=== PATIENT | male | born 1970 | race Caucasian/White ===

== ENCOUNTER 2017-01-24 10:53 | Inpatient (IN) | payer MEDICARE ==
[2017-01-24 11:40] LABS: Bilirubin Negative (Negative); Blood, Urine Trace (Negative); Glucose, Urine (Dipstick) >=1000 mg/dL (Negative); Ketone, Urine > or equal to 80 mg/dL (Negative); Nitrite Negative (Negative); Protein, Urine (Dipstick) 30 mg/dL (Neg-Trace); Urobilinogen 0.2 mg/dL (0.2-1.0)
[2017-01-24 11:43] LABS: Bacteria/HPF None Seen HPF (None Seen); Hyaline Casts/LPF 0-3 HYALINE CAST LPF (0-3 Hyaline); RBC/HPF 0-3 HPF (0-3); Squamous Epithelial None Seen HPF (0-3); WBC/HPF 0-3 HPF (0-3)
[2017-01-24 12:12] LABS: Hematocrit 54.2 % (42.0-52.0); Mean Platelet Volume 7.6 fL (7.4-10.4); Red Blood Cell (RBC) Count 5.32 mill/uL (4.70-6.10); White Blood Cell (WBC) Count 26.4 thou/uL (4.8-10.8)
[2017-01-24 12:22] LABS: Lactic Acid - Sepsis 3.1 mmol/L (0.5-2.2)
[2017-01-24 12:23] LABS: ALT (SGPT) 19 U/L (8-55); AST (SGOT) 16 U/L (5-34); Alkaline Phosphatase 174 U/L (40-150); BUN (Urea Nitrogen) 18 mg/dL (8.9-20.6); Band 5 % (5-11); Bilirubin, Total 0.2 mg/dL (0.2-1.2); Calc. Creatinine Clearance 0 mL/min (70-130); Chloride 104 mmol/L (98-107); Estimated GFR-MDRD 44; Globulin 3.7 g/dL (2.4-3.5); Lipase Less than 4 U/L (8-78); Metamyelocyte 2 % (0-0); Myelocyte 4 % (0-0); Neutrophil 78 % (42-75); Protein, Total 8.5 g/dL (6.0-8.3)
[2017-01-24 12:26] LABS: Carbon Dioxide Less than 8 mmol/L (22-29)
[2017-01-24 12:31] LABS: Troponin I Less than 0.010 ng/mL (< 0.028)
[2017-01-24] MEDS ORDERED: Insulin Regular 300 UNITS/3 ML VIAL ONE (12:53)
[2017-01-24] MEDS ORDERED: Insulin Regular 100 units/100 ml in NS IVPB SCH (13:00)
--- NOTE | 2017-01-24 13:13 | RAD ---
PORTABLE AP CHEST: Date: 01-24-17 History: abdominal pain, shortness of breath. Comparison: 03-12-09 FINDINGS: Cardiac silhouette and pulmonary vasculature are within normal limits. The lungs are clear on today' s examination. There is no other interval change. IMPRESSION: No acute cardiopulmonary process. POS: [facility]
[2017-01-24 15:11] VITALS: BMI 15.0
[2017-01-24] MEDS ORDERED: Acetaminophen 325 MG TAB PO PRN (15:21)
[2017-01-24] MEDS ORDERED: Ondansetron ODT 4 MG TAB SL PRN (15:21)
[2017-01-24] MEDS ORDERED: Ondansetron HCl/PF 4 MG/2 ML Vial IVP PRN (15:21)
[2017-01-24] MEDS ORDERED: Sodium Chloride 0.9% 1,000 ML IV PRN ×8 (15:23→15:24)
[2017-01-24] MEDS ORDERED: Dextrose 5 %-0.45 % NaCl 1,000 ML IV PRN ×2 (15:23→15:24)
[2017-01-24] MEDS ORDERED: NS 0.9% w/ 20 MEQ KCL 1,000 ML/1,000 ML BAG IV PRN ×2 (15:23)
[2017-01-24] MEDS ORDERED: Dextrose 5% in Water 1,000 ML IV PRN (15:23)
[2017-01-24] MEDS ORDERED: D5 1/2 NS w/20 mEq KCL 1,000 ML IV PRN (15:24)
[2017-01-24] MEDS ORDERED: CCU Electrolyte Replacement 1 EACH IVPB ONE (15:24)
[2017-01-24] MEDS ORDERED: NS 0.9% w/ 20 MEQ KCL 1,000 ML IV PRN ×2 (15:24)
[2017-01-24] MEDS ORDERED: Dextrose 50% Abboject 50 ML SYRINGE SLOW IVP PRN (15:25)
[2017-01-24] MEDS ORDERED: ADD ELECTROLYTE REPLACEMENT SET TO PROFILE FS SCH (15:30)
[2017-01-24] MEDS ORDERED: Insulin Regular 300 UNITS/3 ML VIAL IVP SCH (15:30)
[2017-01-24] MEDS ORDERED: Potassium Phosphate 15 MMOL in Sodium Chloride 0.9% 250 ML 250 ML IV PRN (15:39)
[2017-01-24] MEDS ORDERED: Magnesium 2 GM/NS 0.9% 100 ML 2 GM in Premix Bag 1 BAG IVPB PRN (15:39)
[2017-01-24] MEDS ORDERED: Magnesium Oxide 400 MG TAB PO PRN ×2 (15:39)
[2017-01-24] MEDS ORDERED: Potassium Chloride 40 MEQ in Premix Bag 1 BAG IVPB PRN (15:39)
[2017-01-24] MEDS ORDERED: CCU ELECTROLYTE REPLACEMENT PROTOCOL FS PRN (15:39)
[2017-01-24] MEDS ORDERED: Potassium Phosphate 12 MMOL in Sodium Chloride 0.9% 250 ML 250 ML IV PRN (15:39)
[2017-01-24] MEDS ORDERED: Potassium Chloride 20 MEQ TAB PO PRN (15:39)
[2017-01-24] MEDS ORDERED: Potassium Chloride 40 MEQ in Sodium Chloride 0.9% 250 ML 250 ML IVPB PRN (15:39)
[2017-01-24] MEDS ORDERED: Potassium Phosphate 9 MMOL in Sodium Chloride 0.9% 100 ML IVPB PRN (15:39)
[2017-01-24 16:07] LABS: BUN (Urea Nitrogen) 14 mg/dL (8.9-20.6); Calc. Creatinine Clearance 41 mL/min (70-130); Calcium 8.5 mg/dL (7.8-10.44); Chloride 114 mmol/L (98-107); Estimated GFR-MDRD 61
[2017-01-24 16:08] LABS: Carbon Dioxide Less than 8 mmol/L (22-29)
--- NOTE | 2017-01-24 16:30 | PDOC.EVN ---
Event Note - Event Note Event Note: Attending H&P I personally evaluated the patient and discussed the management with Dr. Pierre. The H&P was reviewed and is repeated by me. I agree with the History, Examination, Assessment and Plan documented above with any addition or exceptions noted below. Mr Martinez has DKA and is responding ewll to IV fluids and insulin. I recommended a CVC for fluid, lab and medication access, and after discussing the R/B/I/A of CVC procedure, Mr Martinez would not consent. His main concern was the possibility of complication. He said he is willing to reconsider if he worsens.
[2017-01-24 17:28] LABS: Amphetamine Not Detected (NotDetected); Methadone Not Detected (NotDetected); Methamphetamine Not Detected (NotDetected)
[2017-01-24] MEDS: D5 1/2 NS w/20 mEq KCL 1,000 ML IV PRN ×2 (17:46→22:05)
[2017-01-24 17:47] LABS: Hemoglobin A1c 11.7 % (4.0-6.0)
[2017-01-24 20:19] LABS: Anion Gap 15 mmol/L (10-20); BUN (Urea Nitrogen) 12 mg/dL (8.9-20.6); Calc. Creatinine Clearance 53 mL/min (70-130); Carbon Dioxide 12 mmol/L (22-29); Chloride 116 mmol/L (98-107); Estimated GFR-MDRD 83
--- NOTE | 2017-01-24 20:50 | HP-2 ---
DATE OF ADMISSION: 01/24/2017 at 1400 hours CODE STATUS: FULL. PRIMARY CARE PHYSICIAN: Brian Catherine M.D. ATTENDING: Juliocesar Capellan M.D. RESIDENT: Duran Pierre D.O. HISTORIAN: The patient. SPECIALISTS: None. CHIEF COMPLAINT: Diabetic ketoacidosis. HISTORY OF PRESENT ILLNESS: A 46-year-old male with a history of type 1 diabetes who presents to the emergency room stating that he is in DKA. He says that this has happened in the past and he knows what it feels like and knew that he needed to come and be admitted. He says he never checks the blood sugar , he just takes his meds as is ordered. He woke up this morning with shortness of breath with changes in his vision. He notes some polyuria for the past few days. Patient's last A1c in clinic was 7.9. PAST MEDICAL HISTORY: Type 1 diabetes, hypothyroid, hyperlipidemia, cerebral palsy, and hypertension. ALLERGIES: No known drug allergies. MEDICATIONS: NovoLog 8 units a.c., Lantus 10 units at bedtime, simvastatin 40 mg every day, ASA 81 mg. SOCIAL HISTORY: Tobacco none. Alcohol none. Drug use, none. REVIEW OF SYSTEMS: General: The patient denies fever, chills, or changes in weight or appetite. HEENT: Admits to blurred vision. Denies any nasal congestion or rhinorrhea. Respiratory: Admits to shortness of breath. Cardiovascular: Denies any chest pain or palpitations. GI: Denies any nausea or vomiting. Genitourinary: Admits to polyuria. Skin: Denies rashes or lesions. Musculoskeletal: Denies any pain or tenderness. Neurological: Denies any weakness or numbness. Psychological: Denies any anxiety or depression. PHYSICAL EXAMINATION: VITAL SIGNS: Blood pressure 136/72, pulse 130, respiratory rate 20, temperature 97.5, O2 sat 99% on room air, and his current weight is 45.4 kilograms. GENERAL: The patient is alert and oriented x3, in no apparent distress. HEENT: PERRLA. EOMI. NECK: Supple. No lymphadenopathy. CARDIOVASCULAR: The patient is tachycardic. No murmur. RESPIRATORY: Normal effort, no retractions, clear to auscultation bilaterally. The patient is tachypneic. SKIN: Warm and dry without cyanosis. ABDOMEN: Soft and nontender. Bowel sounds in all 4 quadrants without mass or distention. EXTREMITIES: There is no edema. MUSCULOSKELETAL: Muscle tone is within normal limits. NEUROLOGIC: There are no focal neurological deficits and cranial nerves II-XII are grossly intact. LABORATORY DATA: CBC: Hemoglobin 16.2, hematocrit 54.2, platelets 481, MCV 102 , bands 78%. CMP: Sodium 138, potassium 6.5, chloride 104, bicarbonate 8, BUN 18, creatinine 0.7, calcium is 10, total serum protein is 8.5, albumin 4.8, total bilirubin 0.2, AST 16, ALT 19, alkaline phosphatase 174, GFR is 44, lactate 2.1, ____, lipase less than 4. Troponin is negative. CK-MB 1.3. UA specific gravity 1.03, blood trace, protein 30, leukocyte esterase negative, nitrites negative, ketones greater than 80, glucose greater than 1000, RBCs, 0- 3 WBCs, 0-3, bacteria none. ASSESSMENT AND PLAN: 1. Diabetic ketoacidosis. Admit to IMCU with diabetic ketoacidosis protocol q.4 hour BMPs. Add a central line. Also, check UDS and UA. 2. Type 1 diabetes. DKA protocol. Titrate his medications. 3. Cerebral palsy. Outpatient followup p.r.n. 4. Hyperkalemia. Monitor BMP. This will likely come down with IVF and insulin. 5. Hypertension. Monitor BMP. MTDD
[2017-01-24] MEDS: Enoxaparin Sodium 40 MG/0.4 ML SYRINGE SC SCH (20:52)
[2017-01-24] MEDS ORDERED: FLU VACC QS2017-18 36 mo. & older 0.5 ML SYRINGE IM ONE (21:00)
[2017-01-24 23:58] LABS: Anion Gap 11 mmol/L (10-20); BUN (Urea Nitrogen) 11 mg/dL (8.9-20.6); Calc. Creatinine Clearance 58 mL/min (70-130); Carbon Dioxide 16 mmol/L (22-29); Chloride 115 mmol/L (98-107); Estimated GFR-MDRD Greater than 90
[2017-01-25] MEDS ORDERED: Insulin Detemir 100 UNITS/ML 10 UNITS in Pre-Filled Syringe 1 EACH SC SCH (00:30)
[2017-01-25] MEDS: D5 1/2 NS w/20 mEq KCL 1,000 ML IV PRN ×3 (02:08→10:29)
[2017-01-25 06:32] LABS: Anion Gap 8 mmol/L (10-20); BUN (Urea Nitrogen) 9 mg/dL (8.9-20.6); Calc. Creatinine Clearance 72 mL/min (70-130); Calcium 7.9 mg/dL (7.8-10.44); Carbon Dioxide 17 mmol/L (22-29); Chloride 115 mmol/L (98-107); Estimated GFR-MDRD Greater than 90
[2017-01-25] MEDS ORDERED: Insulin Detemir 100 UNITS/ML 15 UNITS in Pre-Filled Syringe 1 EACH SC SCH ×2 (09:00→21:00)
[2017-01-25] MEDS ORDERED: Enoxaparin Sodium 30 MG/0.3 ML SYRINGE SC SCH (09:00)
--- NOTE | 2017-01-25 09:42 | PDOC.FM ---
- Subjective Subjective: Pt doing well this morning with no complaints. Tolerated breakfast well. No adverse events overnight. - Objective MAR Reviewed: Yes Vital Signs & Weight: Vital Signs (12 hours) Temp Pulse Resp BP Pulse Ox 01/25/17 07:46 98.6 F 76 17 96 01/25/17 07:15 98.6 F 76 17 94/59 L 96 01/25/17 04:00 98.0 F 76 16 99/54 L 100 01/25/17 00:00 98.1 F 86 18 99/52 L 100 Weight Weight 39.735 kg I&O: 01/24/17 01/25/17 01/26/17 06:59 06:59 06:59 Intake Total 4178.7 480 Output Total 1405 Balance 2773.7 480 Result Diagrams: 01/24/17 11:54 01/25/17 05:50 <Bettye Naranjo - Last Filed: 01/25/17 09:39> - Objective Vital Signs & Weight: Weight Admit Weight 39.735 kg Weight 39.735 kg Result Diagrams: 01/26/17 03:21 01/27/17 11:39 <Ramon Esteves - Last Filed: 02/04/17 16:27> Phys Exam - Physical Examination Constitutional: NAD Respiratory: clear to auscultation bilateral Cardiovascular: RRR Gastrointestinal: soft, non-tender Musculoskeletal: no edema <Bettye Naranjo - Last Filed: 01/25/17 09:39> Dx/Plan (1) DKA (diabetic ketoacidoses) Code(s): E13.10 - OTH DIABETES MELLITUS WITH KETOACIDOSIS WITHOUT COMA Status : Resolved Qualifiers: Diabetes mellitus type: type 1 Plan: likely secondary to medication non-compliance. Resolved. Insulin drip discontinued this morning. Long-acting insulin regimen started this morning. (2) Type 1 diabetes Status: Chronic Plan: Will continue to monitor ac/hs accuchecks to determine what pt's insulin requirements are and adjust currently. Continue Levemir 15 units BID and mild SSI. (3) Non compliance w medication regimen Code(s): Z91.14 - PATIENT'S OTHER NONCOMPLIANCE WITH MEDICATION REGIMEN Status : Resolved Plan: Pt educated on adherence to medication regimen. (4) JOSE MARIA (acute kidney injury) Code(s): N17.9 - ACUTE KIDNEY FAILURE, UNSPECIFIED Status: Resolved Plan: resolved. Continue to monitor. (5) Hyperkalemia Code(s): E87.5 - HYPERKALEMIA Status: Resolved (6) Cerebral palsy Code(s): G80.9 - CEREBRAL PALSY, UNSPECIFIED Status: Chronic <Bettye Naranjo - Last Filed: 01/25/17 09:39> Attending Addendum - Attending Addendum I personally evaluated the patient and discussed the management with Dr. Naranjo on 01/25/17 I agree with the History, Examination, Assessment and Plan documented above with any addition or exceptions noted below. w/o c/o's this a.m. DKA resolved with AG closed. Advancing diet and converting to care home SQ regimen in prep for discharge. Medication and dietary compliance stressed including more frequent Accuchecks when not feeling well or sugar out of control with communication with PCP or elevator dispatcher if difficulty reacquiring ideal glycemic ranges. <Ramon Esteves - Last Filed: 02/04/17 16:27>
[2017-01-25] MEDS ORDERED: HumaLOG 300 UNITS/3 ML VIAL SC PRN (10:35)
[2017-01-25 10:43] LABS: Hematocrit 37.5 % (42.0-52.0); Mean Platelet Volume 7.2 fL (7.4-10.4); Red Blood Cell (RBC) Count 3.81 mill/uL (4.70-6.10); White Blood Cell (WBC) Count 15.8 thou/uL (4.8-10.8)
[2017-01-25 10:56] LABS: Band 9 % (5-11); Burr Cells SLIGHT = 2-5 cells (100X) (0-1/hpf); Neutrophil 69 % (42-75)
[2017-01-25] MEDS: HumaLOG 300 UNITS/3 ML VIAL SC SCH ×2 (11:52→17:31)
[2017-01-25] MEDS: Enoxaparin Sodium 40 MG/0.4 ML SYRINGE SC SCH (21:55)
[2017-01-25] MEDS: Insulin Detemir 100 UNITS/ML 10 UNITS in Pre-Filled Syringe SC SCH (21:55)
[2017-01-26 04:26] LABS: Anion Gap 12 mmol/L (10-20); BUN (Urea Nitrogen) 7 mg/dL (8.9-20.6); Calc. Creatinine Clearance 88 mL/min (70-130); Calcium 8.4 mg/dL (7.8-10.44); Carbon Dioxide 22 mmol/L (22-29); Chloride 108 mmol/L (98-107); Estimated GFR-MDRD Greater than 90
[2017-01-26 04:37] LABS: #Eosinphils 0.2 thou/uL (0.0-0.7); #Monocytes 0.9 thou/uL (0.11-0.59); #Neutrophils 5.2 thou/uL (1.40-6.50); %Basophils 0.4 % (0.0-1.0); %Eosinophils 2.2 % (0.0-10.0); %Lymphocytes 32.3 % (21.0-51.0); %Monocytes 9.1 % (0.0-10.0); Hematocrit 37.6 % (42.0-52.0); Mean Platelet Volume 7.2 fL (7.4-10.4); Red Blood Cell (RBC) Count 3.97 mill/uL (4.70-6.10); White Blood Cell (WBC) Count 9.4 thou/uL (4.8-10.8)
[2017-01-26] MEDS ORDERED: Potassium Chloride 20 MEQ TAB PO SCH (06:20)
--- NOTE | 2017-01-26 08:31 | PDOC.FM ---
- Subjective Subjective: Pt feels well today and has no specific complaints. He denies all symptoms in ROS. Pt has had labile blood glucose since hospitalization with multiple recorded BG below 60. At 0444 he had a glucose of 55 after a glucose of 316 at 2153. Pt was asymptomatic during periods of hypoglycemia, per nursing - Objective Vital Signs & Weight: Vital Signs (12 hours) Temp Pulse Resp BP Pulse Ox 01/26/17 07:55 98.4 F 83 16 106/62 95 01/26/17 04:00 97.9 F 76 18 111/70 97 01/26/17 00:00 98 F 81 18 116/71 97 Weight Admit Weight 39.735 kg Weight 39.735 kg I&O: 01/25/17 01/26/17 01/27/17 06:59 06:59 06:59 Intake Total 4178.7 1200 Output Total 1405 975 Balance 2773.7 225 Result Diagrams: 01/26/17 03:21 01/26/17 03:21 Phys Exam - Physical Examination Constitutional: NAD HEENT: moist MMs Neck: no JVD, full ROM Respiratory: clear to auscultation bilateral Cardiovascular: RRR, no significant murmur Gastrointestinal: soft, non-tender, no distention, positive bowel sounds Musculoskeletal: no edema Neurological: non-focal, normal sensation, moves all 4 limbs Psychiatric: normal affect, A&O x 3 Skin: no rash Dx/Plan (1) Hypokalemia Code(s): E87.6 - HYPOKALEMIA Status: Acute Plan: 2/2 to IVF and insulin. Replace PO (2) Type 1 diabetes Status: Chronic Qualifiers: Diabetes mellitus complication status: without complication Qualified Code( s): E10.9 - Type 1 diabetes mellitus without complications Plan: A1c in hospital was 11.7 Has been difficult to control his BG. He will need close outpatient fu to rework his insulin regimen Continue SSI and move down his basil/short acting insulin BG ACHS (3) JOSE MARIA (acute kidney injury) Code(s): N17.9 - ACUTE KIDNEY FAILURE, UNSPECIFIED Status: Resolved (4) DKA (diabetic ketoacidoses) Code(s): E13.10 - OTH DIABETES MELLITUS WITH KETOACIDOSIS WITHOUT COMA Status : Resolved Qualifiers: Diabetes mellitus type: type 1 (5) Non compliance w medication regimen Code(s): Z91.14 - PATIENT'S OTHER NONCOMPLIANCE WITH MEDICATION REGIMEN Status : Resolved (6) Hyperkalemia Code(s): E87.5 - HYPERKALEMIA Status: Resolved (7) Cerebral palsy Code(s): G80.9 - CEREBRAL PALSY, UNSPECIFIED Status: Chronic
[2017-01-26] MEDS: Insulin Detemir 100 UNITS/ML 10 UNITS in Pre-Filled Syringe SC SCH (08:32)
[2017-01-26] MEDS: HumaLOG 300 UNITS/3 ML VIAL SC SCH ×3 (08:36→18:32)
[2017-01-26] MEDS ORDERED: Insulin Detemir 100 UNITS/ML 8 UNITS in Pre-Filled Syringe 1 EACH SC SCH ×2 (09:00→21:00)
[2017-01-26] MEDS ORDERED: HumaLOG 300 UNITS/3 ML VIAL SC SCH (12:00)
--- NOTE | 2017-01-26 12:04 | ADD-PRG ---
DATE OF SERVICE: 01/26/2017 This is an addendum to the note of Dr. Duran Pierre. Mr. Martinez is a 46-year-old type 1 diabetic who was admitted in diabetic ketoacidosis. Upon admissi on, he had a potassium 6.5, bicarbonate less than 8, elevated anion gap, BUN 18, creatinine 1.7, and blood glucose of 635. He also had a significant elevation of his beta hydroxybutyrate as well as h is A1c. He was started on an insulin infusion and by the time I saw him the next morning his DKA pearl d resolved. In fact, this morning's labs are back to near normal except for a hyperchloremia, likel y related to his resolution of diabetic ketoacidosis. His sodium is 136, potassium is 3.6, chloride is 115, bicarbonate is now 17, BUN 9, creatinine 0.72, GFR greater than 90 and blood glucose is 179 . He is awake, alert, and feels much better. We will likely keep him 1 more day in order to instru cted him on his insulin regimen and to adjust his insulin regimen.
--- NOTE | 2017-01-26 13:57 | PQF ---
Date: 01-26-17 ATTN: DR. JUAN GARCIA / DR. ALMA BLACK Please exercise your independent, professional judgment in responding to the clarification form. Clinical indicators are provided on the bottom of this form for your review Please check appropriate box(s): [ ] Protein Calorie Malnutrition: [ ] Mild [ x ] Moderate [ ] Severe [ ] Other Malnutrition (please specify) __DM1, pt does not properly take insulin [ ] Underweight without malnutrition [ ] Cachexia [ ] Other diagnosis [ ] Unable to determine In addition, please specify: Present on Admission (POA): [x ] Yes [ ] No [ ] Unable to determine CLINICAL INDICATORS - SIGNS / SYMPTOMS / LABS BMI: 15.0 CHECK WEIGHER CONSULT 01-25-17: (WEIGHS 87# NOW) HE IS KNOWN TO FROM PAST ADMIT , WEIGHED 92.6 ON 10-11. AT THAT TIME HE REPORTED UBW AT ABOUT 100 LBS, WEIGHT CHANGE CHECK WEIGHER CONSULT 01-25-17: ESTIMATED % NEEDS MET FOR KCAL, LIKELY NOT MET RISK FACTORS: CHECK WEIGHER CONSULT 01-25-17: DKA, VOLUME DEPLETION H&P: TYPE 1 DM, HYPOTHYROID, CEREBRAL PALSY, HTN TREATMENT: DIETARY CONSULT 01-25-17: CONSISTENT CARB (1800 KCAL) DIET, ADD SF MIGHTY SHAKES BID TO AID WITH INTAKE, NUTRITIONAL PRESCRIPTION (This form is maintained as a part of the permanent medical record) 2014 [employer]. All Rights Reserved [email or web address] Office: [phone] [facility]
[2017-01-26] MEDS: INSULIN DETEMIR SC SCH (21:43)
[2017-01-26] MEDS: PRE FILLED SC SCH (21:43)
[2017-01-26] MEDS: Enoxaparin Sodium 40 MG/0.4 ML SYRINGE SC SCH (21:44)
[2017-01-27 04:52] LABS: Anion Gap 9 mmol/L (10-20); BUN (Urea Nitrogen) 9 mg/dL (8.9-20.6); Calc. Creatinine Clearance 88 mL/min (70-130); Calcium 8.9 mg/dL (7.8-10.44); Carbon Dioxide 29 mmol/L (22-29); Chloride 105 mmol/L (98-107); Estimated GFR-MDRD Greater than 90
[2017-01-27] MEDS ORDERED: Potassium Chloride 20 MEQ TAB PO SCH (05:30)
[2017-01-27] MEDS: PRE FILLED SC SCH (08:10)
[2017-01-27] MEDS: INSULIN DETEMIR SC SCH (08:10)
[2017-01-27 08:18] VITALS: BP 107/68; TEMP 97.6
--- NOTE | 2017-01-27 08:57 | PDOC.FM ---
- Subjective Subjective: Pt feels well this morning and has no specific complaints. He denies all symptoms in ROS. There were no acute events over night - Objective MAR Reviewed: Yes Vital Signs & Weight: Vital Signs (12 hours) Temp Pulse Resp BP Pulse Ox 01/27/17 08:17 97.6 F 67 18 107/68 96 Weight Admit Weight 39.735 kg Weight 39.735 kg I&O: 01/26/17 01/27/17 01/28/17 06:59 06:59 06:59 Intake Total 1200 Output Total 975 1 Balance 225 -1 Result Diagrams: 01/26/17 03:21 01/27/17 03:16 Phys Exam - Physical Examination Constitutional: NAD HEENT: PERRLA, moist MMs Neck: no JVD, full ROM Respiratory: clear to auscultation bilateral Cardiovascular: RRR, no significant murmur Gastrointestinal: soft, non-tender, no distention, positive bowel sounds Musculoskeletal: no edema Neurological: non-focal, normal sensation, moves all 4 limbs LE weakness from CP Lymphatic: no nodes Psychiatric: normal affect, A&O x 3 Skin: no rash, normal turgor, cap refill <2 seconds Dx/Plan (1) Hypokalemia Code(s): E87.6 - HYPOKALEMIA Status: Acute Plan: 2/2 to IVF and insulin. Replace PO recheck at 1200 today (2) Type 1 diabetes Status: Chronic Qualifiers: Diabetes mellitus complication status: without complication Qualified Code( s): E10.9 - Type 1 diabetes mellitus without complications Plan: A1c in hospital was 11.7 Has been difficult to control his BG. He will need close outpatient fu to rework his insulin regimen Will cut back his basal and short acting insulin BG ACHS Had long conversation concerning proper diet, not missing meals, and the danger of hypoglycemia. It seems that his typical insulin requirement is due to a poor diet and when on a low carb diet his requirement is much less. If he does not have hypoglycemic episodes on new dosing, will dc this afternoon w/short follow up in clinic w/PCP (3) JOSE MARIA (acute kidney injury) Code(s): N17.9 - ACUTE KIDNEY FAILURE, UNSPECIFIED Status: Resolved (4) DKA (diabetic ketoacidoses) Code(s): E13.10 - OTH DIABETES MELLITUS WITH KETOACIDOSIS WITHOUT COMA Status : Resolved Qualifiers: Diabetes mellitus type: type 1 (5) Non compliance w medication regimen Code(s): Z91.14 - PATIENT'S OTHER NONCOMPLIANCE WITH MEDICATION REGIMEN Status : Resolved (6) Hyperkalemia Code(s): E87.5 - HYPERKALEMIA Status: Resolved (7) Cerebral palsy Code(s): G80.9 - CEREBRAL PALSY, UNSPECIFIED Status: Chronic
[2017-01-27] MEDS: HumaLOG 300 UNITS/3 ML VIAL SC SCH ×2 (10:42→12:18)
--- NOTE | 2017-01-27 14:30 | ADD-PRG ---
DATE OF SERVICE: 01/27/2017 ADDENDUM Please add it as an addendum to the note of Dr. Duran Pierre. Mr. Martinez looks and feels much costa r this morning. His blood glucose levels are obtaining better control, but he still has some episod es of very mild hypoglycemia during the last 24 hours. His Levemir insulin has been adjusted downwa . He will be discharged today for close followup on Monday. His DKA is completely resolved.
[2017-01-27] MEDS ORDERED: HumaLOG 300 UNITS/3 ML VIAL SC SCH (17:00)
--- NOTE | 2017-01-27 23:15 | DIS-2 ---
DATE OF ADMISSION: 01/24/2017 DATE OF DISCHARGE: 01/27/2017 RESIDENT: Duran Pierre DO ADMITTING ATTENDING: Juliocesar Capellan M.D. DISCHARGE ATTENDING: Sky Mercer MD CONSULTATIONS: None. PROCEDURES: None. DISCHARGE MEDICATIONS: Humalog 4 units subcutaneously t.i.d. with meals, Levemir 4 units subcutaneously b.i.d. DISCONTINUED MEDICATIONS: Previous dosing of Humalog 8 units and Lantus 10 units. HOSPITAL COURSE: The patient was admitted from the emergency room in A. The patient had an anion gap of at least 26 and beta hydroxybutyrate of 12. The patient was admitted to the ICU on DKA protocol. Within the first 24 hours, the patient's anion gap closed and he was moved to the floor. Initially on admission, potassium was moderately elevated of 6.5. This was trended down over the subsequent days and the patient eventually became slightly hypokalemic at approximately 3.0. Potassium was replaced over the next 2 days and remained in the normal range. After 2 days replacement during admission, his blood sugar was particularly labile with multiple hypoglycemic episodes in the 50s or even 30s, with max out in the 300s. The patient was moved to a much lower dose of insulin. Apparently his diet as in the hospital and so his insulin dose is much higher outside hospital. A significant amount of time on the day of discharge was spent educating him on the importance of a consistent carbohydrate diet as well as probably take insulin and how often he should be checking his insulin. The patient is aware that he should be checking his blood sugar 4 times a day and keeping the log until he is able to follow up with his PCP within the next week in order to titrate his insulin to a more appropriate dosing. The patient is also aware that he needs to be eating a consistently low carbohydrate diet to avoid going too high or low on his blood sugar. The patient expressed understanding of these concepts and stated that he would be compliant. DISCHARGE DISPOSITION: The patient is stable. DISCHARGE LOCATION: Home. ACTIVITY: Ad j luis. FOLLOWUP: Follow up with PCP, Dr. Brian Catherine, within 1 week. [facility]
--- NOTE | 2017-02-04 14:18 | EKG ---
Test Reason : TACHYCARDIA Blood Pressure : / mmHG Vent. Rate : 124 BPM Atrial Rate : 124 BPM P-R Int : 118 ms QRS Dur : 068 ms QT Int : 300 ms P-R-T Axes : 074 064 065 degrees QTc Int : 431 ms Sinus tachycardia Otherwise normal ECG Confirmed by ROSE MARIE SIERRA ([id number]), publications editor CYNDI VASQUEZ ([id number]) on 02/04/2017 2:18:09 PM Referred By: Confirmed By:ROSE MARIE SIERRA
== END 2017-01-27 16:19 | disposition home or self-care (01) | DRG 638 ==
LOC: ERS 10:53 → IMCU/EMU 15:07 → T4-A 01-25 14:04
PROVIDERS: ADMIT Family Medicine; ATTEND Family Medicine
DX: E10.10 Type 1 diabetes mellitus with ketoacidosis without coma (principal); N17.9 Acute kidney failure, unspecified; E44.0 Moderate protein-calorie malnutrition; Z68.1 Body mass index [BMI] 19.9 or less, adult; E87.5 Hyperkalemia; I10 Essential (primary) hypertension; Z79.4 Long term (current) use of insulin; E03.9 Hypothyroidism, unspecified; E78.5 Hyperlipidemia, unspecified; G80.9 Cerebral palsy, unspecified; Z91.14 Patient's other noncompliance with medication regimen
CPT/HCPCS: 36415; 36416; 71010; 80048; 80053; 80306; 81003; 81015; 82010; 82553; 83036; 83605; 83690; 84484; 85025; 93005; 96361; 96365; 96366; 96376; J1650; J1815; J7050

== ENCOUNTER 2017-03-03 23:26 | Inpatient (IN) | payer MEDICARE ==
[2017-03-04 00:06] LABS: Anion Gap 16 mmol/L (-14-95); T. Carbon Dioxide 9.8 mmol/L (1.0-85.0); pH (Venous) 7.225 (7.35-7.45)
[2017-03-04 00:11] LABS: Red Blood Cell (RBC) Count 4.87 mill/uL (4.70-6.10); White Blood Cell (WBC) Count 34.3 thou/uL (4.8-10.8)
[2017-03-04 00:21] LABS: Band 3 % (5-11); Neutrophil 88 % (42-75)
[2017-03-04 00:22] LABS: Osmolality, Serum 356 mOsm/kg (280-295)
[2017-03-04 00:24] LABS: Lactic Acid - Sepsis 1.4 mmol/L (0.5-2.2)
[2017-03-04 00:31] LABS: ALT (SGPT) 29 U/L (8-55); AST (SGOT) 22 U/L (5-34); Alkaline Phosphatase 142 U/L (40-150); BUN (Urea Nitrogen) 39 mg/dL (8.9-20.6); Bilirubin, Total 0.5 mg/dL (0.2-1.2); CK (CPK) 75 U/L (30-200); Calc. Creatinine Clearance 0 mL/min (70-130); Calcium 8.9 mg/dL (7.8-10.44); Chloride 103 mmol/L (98-107); Estimated GFR-MDRD 35; Globulin 2.8 g/dL (2.4-3.5); Lipase 174 U/L (8-78); Magnesium 2.7 mg/dL (1.6-2.6); Protein, Total 7.1 g/dL (6.0-8.3)
[2017-03-04 00:33] LABS: Troponin I Less than 0.010 ng/mL (< 0.028)
[2017-03-04 00:35] LABS: Carbon Dioxide Less than 8 mmol/L (22-29)
[2017-03-04] MEDS ORDERED: Insulin Regular 300 UNITS/3 ML VIAL ONE (00:35)
[2017-03-04 00:44] LABS: Bilirubin Negative (Negative); Blood, Urine Negative (Negative); Glucose, Urine (Dipstick) >=1000 mg/dL (Negative); Ketone, Urine 80 mg/dL (Negative); Nitrite Negative (Negative); Protein, Urine (Dipstick) Negative (Neg-Trace); Urobilinogen 0.2 mg/dL (0.2-1.0)
[2017-03-04 00:56] LABS: Amphetamine Not Detected (NotDetected); Methadone Not Detected (NotDetected); Methamphetamine Not Detected (NotDetected)
[2017-03-04] MEDS ORDERED: Dextrose 5 %-0.45 % NaCl 1,000 ML IV PRN (03:38)
[2017-03-04] MEDS ORDERED: NS 0.9% w/ 20 MEQ KCL 1,000 ML IV PRN ×2 (03:38)
[2017-03-04] MEDS ORDERED: Ondansetron HCl/PF 4 MG/2 ML Vial IVP PRN (03:38)
[2017-03-04] MEDS ORDERED: D5 1/2 NS w/20 mEq KCL 1,000 ML IV PRN (03:38)
[2017-03-04] MEDS ORDERED: Dextrose 50% Abboject 50 ML SYRINGE SLOW IVP PRN (03:38)
[2017-03-04] MEDS ORDERED: Acetaminophen 650 MG Suppository PR PRN (03:38)
[2017-03-04] MEDS ORDERED: Acetaminophen 325 MG TAB PO PRN (03:38)
[2017-03-04] MEDS ORDERED: CCU Electrolyte Replacement 1 EACH IVPB SCH (03:38)
[2017-03-04] MEDS ORDERED: Dextrose 5% in Water 1,000 ML IV PRN (03:38)
[2017-03-04] MEDS ORDERED: Ondansetron ODT 4 MG TAB PO PRN (03:38)
[2017-03-04] MEDS ORDERED: Sodium Chloride 0.9% 1,000 ML IV PRN ×5 (03:38→08:57)
[2017-03-04] MEDS ORDERED: CCU ELECTROLYTE REPLACEMENT PROTOCOL FS PRN (03:48)
[2017-03-04] MEDS ORDERED: Magnesium 2 GM/NS 0.9% 100 ML 2 GM in Premix Bag 1 BAG IVPB PRN (03:48)
[2017-03-04] MEDS ORDERED: Potassium Chloride 20 MEQ TAB PO PRN (03:48)
[2017-03-04] MEDS ORDERED: Potassium Phosphate 12 MMOL in Sodium Chloride 0.9% 250 ML 250 ML IV PRN (03:48)
[2017-03-04] MEDS ORDERED: Potassium Phosphate 9 MMOL in Sodium Chloride 0.9% 100 ML IVPB PRN (03:48)
[2017-03-04] MEDS ORDERED: Potassium Chloride 40 MEQ in Sodium Chloride 0.9% 250 ML 250 ML IVPB PRN (03:48)
[2017-03-04] MEDS ORDERED: Potassium Phosphate 15 MMOL in Sodium Chloride 0.9% 250 ML 250 ML IV PRN (03:48)
[2017-03-04] MEDS ORDERED: Potassium Chloride 40 MEQ in Premix Bag 1 BAG IVPB PRN (03:48)
[2017-03-04] MEDS ORDERED: Magnesium Oxide 400 MG TAB PO PRN ×2 (03:48)
[2017-03-04 05:43] LABS: Anion Gap 19 mmol/L (10-20); BUN (Urea Nitrogen) 29 mg/dL (8.9-20.6); Calc. Creatinine Clearance 0 mL/min (70-130); Carbon Dioxide 13 mmol/L (22-29); Chloride 116 mmol/L (98-107); Estimated GFR-MDRD 55
--- NOTE | 2017-03-04 07:16 | RAD ---
FRONTAL RADIOGRAPH OF CHEST: Date: 03/03/17 COMPARISON: 01/24/17. HISTORY: Vomiting and chest pain. FINDINGS: No pneumothorax or pleural fluid. No focal consolidation or alveolar edema. Mild increased interstiti al density noted. Heart and mediastinal contours are stable. IMPRESSION: No acute findings. POS: [facility]
--- NOTE | 2017-03-04 07:49 | HP-2 ---
CODE STATUS: FULL. PRIMARY CARE PHYSICIAN: Dr. Brian Catherine. ADMITTING ATTENDING: Rinku Toney M.D. ADMITTING RESIDENT: Duran Darling M.D. HISTORIAN: Patient. CHIEF COMPLAINT: Vomiting. HISTORY OF PRESENT ILLNESS: The patient is a pleasant 46-year-old male with past medical history of type 1 diabetes mellitus, cerebral palsy and hyperlipidemia presenting with vomiting over the last 2 days. The patient was in his normal state of health and had no recent changes to his medications or health status within the last week. The patient states he has been very compliant with his medications. The patient denies any associated symptoms with his vomiting including headache, chest pain, shortness of breath, diarrhea , constipation, abdominal pain, and cough. He has had at least 3 to 4 episodes of DKA in the past that he can recall and notes that he does not routinely check his blood sugar. The patient also endorses feeling somewhat fatigued over the last couple of days along with his nausea and vomiting. ER: In the emergency department, the patient received the followin. Two-liter normal saline bolus. 2. Levaquin 750 mg IV. 3. Insulin drip. PAST MEDICAL HISTORY: 1. Diabetes mellitus type 1. 2. Hyperlipidemia. 3. Cerebral palsy. PAST SURGICAL HISTORY: None. ALLERGIES: PENICILLIN. MEDICATIONS: 1. Levemir 4 units subcutaneously b.i.d. 2. Humalog 4 units subcutaneously t.i.d. with meals. FAMILY HISTORY: None. SOCIAL HISTORY: The patient denies tobacco, alcohol, or illicit drug use. REVIEW OF SYSTEMS: Ten-point review of systems negative, unless otherwise noted in the HPI. PHYSICAL EXAMINATION: VITAL SIGNS: Blood pressure 126/70, pulse 108, respirations 18, T-max 98.2, pulse ox 99% on room air, weight 64 kilograms. GENERAL: Alert and oriented x4, in no acute distress. Thin, appropriately interactive gentleman. EYES: PERRL. EOMI. Conjunctiva within normal limits. ENT: Oropharynx shows slightly dry mucous membranes. NECK: Supple, no lymphadenopathy noted. CARDIOVASCULAR: Tachycardic rate, irregular rhythm. No murmurs or gallops appreciated. Radial pulses 2+ bilaterally. RESPIRATORY: Normal effort, no retractions. Clear to auscultation bilaterally. SKIN: Warm and dry. No cyanosis. ABDOMEN: Soft, nontender to palpation. Bowel sounds active in all 4 quadrants. MUSCULOSKELETAL: Muscle strength 4/5 in the bilateral lower extremities fractures noted. No obvious focal deficits. PSYCHIATRIC: Appropriate mood and affect. LABORATORY DATA: 1. Hematology: WBC 34.3, hemoglobin 14.8, hematocrit 49, platelets 393. 2. Chemistry: Sodium 140, potassium 5.4, chloride 103, bicarbonate less than 8 , BUN 39, creatinine 2.07. Glucose 752, calcium 8.9, total protein 7.1, albumin 4.3, AST 22, ALT 29, alkaline phosphatase 142, total bilirubin 0.5, CK 75, CK-MB 2, troponin less than 0.010, lipase 174, lactic acid 1.4, magnesium 2.7. 3. Beta hydroxybutyrate 14.36. 4. VB.//47. 5. UA shows greater than 1000 glucose with 80 ketones. 6. UDS negative. 7. Flu swab negative. 8. EKG shows sinus tachycardia with a rate of 120s. 9. Chest x-ray pulmonary shows no acute cardiopulmonary process. ASSESSMENT AND PLAN: A 46-year-old male with: 1. Anion gap metabolic acidosis secondary to diabetic ketoacidosis. - We will admit the patient to the CCU with diabetic ketoacidosis protocol orders to include aggressive intravenous fluid resuscitation and continued insulin drip. The patient will have BMP checked q.4 hours along with Accu- Cheks q.1 hour until his bicarbonate normalizes, gap closes, and insulin can be transitioned to subcutaneous. The patient will be kept n.p.o. 2. Acute kidney injury likely secondary to diabetic ketoacidosis and moderate dehydration. - As per above, BMPs will be obtain q.4 hours and also the patient has intravenous fluid resuscitation, we will continue to monitor. 3. Moderate dehydration. - Plan per above. 4. Leukocytosis, likely secondary to dehydration with no obvious source for infection. - The patient did receive 1 dose of Levaquin in the emergency department. The patient does not complain of any obvious infectious symptoms. However, both blood and urine cultures were obtained in the emergency department prior to antibiotic therapy. We will continue to monitor and trend CBCs daily. 5. Hyperkalemia. - This will likely resolve with insulin drip and will continue to monitor closely with the above mentioned BMPs and electrolyte protocol. 6. Prophylaxis. The patient will be placed on heparin for venous thromboembolic prophylaxis secondary to acute kidney injury and famotidine for gastrointestinal prophylaxis. DISPOSITION: The patient is admitted under inpatient status for anticipated length of stay of greater than 2 midnights, pending clinical course. Symptomatic medications will be provided. History and physical as well as management discussed with Dr. Rinku Toney who agrees with the above assessment and plan. Patient was seen by me with residents. I agree with faust portions of H&P, note above. A handwritten note is in his chart. This is his third episode of DKA this year. He claims to be taking his meds and is on Medicaid. However, he does have significant transportation issues. We will work with him to make sure we address these and try to get meds delivered to his home. DARRON
[2017-03-04 08:03] LABS: Anion Gap 12 mmol/L (10-20); BUN (Urea Nitrogen) 26 mg/dL (8.9-20.6); Calc. Creatinine Clearance 0 mL/min (70-130); Calcium 8.1 mg/dL (7.8-10.44); Carbon Dioxide 19 mmol/L (22-29); Chloride 119 mmol/L (98-107); Estimated GFR-MDRD 66; Magnesium 2.2 mg/dL (1.6-2.6)
[2017-03-04 08:11] LABS: Phosphorus 1.3 mg/dL (2.3-4.7)
[2017-03-04 08:17] VITALS: BMI 15.5
[2017-03-04] MEDS ORDERED: Famotidine/PF 20 mg/2ml Vial SLOW IVP SCH (09:00)
[2017-03-04] MEDS ORDERED: Insulin Detemir 100 UNITS/ML 4 UNITS in Pre-Filled Syringe 1 EACH SC SCH ×2 (09:00→21:00)
[2017-03-04] MEDS: Heparin 5,000 UNITS/ML VIAL SC SCH ×3 (09:41→21:31)
[2017-03-04] MEDS: Insulin Detemir 100 UNITS/ML 4 UNITS in Pre-Filled Syringe 1 EACH SC SCH (10:06)
[2017-03-04] MEDS ORDERED: Dextrose 50% Abboject 50 ML SYRINGE ONE (10:52)
--- NOTE | 2017-03-04 11:18 | CON ---
DATE OF CONSULTATION: 03/04/2017 SERVICE: Pulmonary Medicine. INTERVAL HISTORY: The patient is doing excellent from a respiratory standpoint. He denies any curre nt fevers, chills, nausea, vomiting or chest discomfort. The symptoms that brought him here have imp roved fairly dramatically. He remains thirsty. PAST MEDICAL HISTORY: 1. Type 1 diabetes mellitus. 2. Dyslipidemia. 3. Cerebral palsy. PAST SURGICAL HISTORY: None. SOCIAL HISTORY: Negative for alcohol, tobacco or illicit drug use. He denies exposure to chemicals, asbestosis or tuberculosis. FAMILY HISTORY: Noncontributory. ALLERGIES: PENICILLIN. MEDICATIONS: List of his inpatient medications was reviewed. There are no specific updates made. Ad willis is on minimum doses of insulin in the outpatient setting. REVIEW OF SYSTEMS: General, head, ears, eyes, nose, throat, cardiovascular, respiratory, GI, , mus culoskeletal, neurologic and skin is negative except as mentioned in the HPI. PHYSICAL EXAMINATION: VITAL SIGNS: Afebrile, pulse 94, blood pressure 106/60, respirations 20, saturation 99% on room air. GENERAL: Patient is awake, alert, in no apparent distress. HEENT: Normocephalic, atraumatic. Sclerae are white, conjunctivae pink. Oral mucosa is dry. LUNGS: Excellent air entry with no prolonged expiratory phase, wheezing, rhonchi or crackles. HEART: Normal rate, regular. ABDOMEN: Soft, nontender, nondistended, bowel sounds positive. MUSCULOSKELETAL: No cyanosis or clubbing. No pitting in the bilateral lower extremities. LABORATORY DATA: WBC 34, hemoglobin 14.8, and platelets 393,000. Neutrophil count is 88% with 3% ba nds. A pH 7.22, pCO2 22. Creatinine 1.18, which is aggressively down trending, bicarbonate 19 and i mproving. Sodium and chloride are both quite elevated. Phosphorus 1.3. Potassium 4.1. Magnesium f alls within normal limits. Urinalysis is positive for glycosuria and ketonuria. Beta hydroxybutyric acid is 14 and urine drug screen is completely unremarkable. Influenza A and B is negative. IMAGING: Chest x-ray demonstrates no acute cardiopulmonary abnormality. Heart size is slender. Cos tophrenic angles are clear. There is no focal infiltrates identified. ASSESSMENT: 1. Systemic inflammatory response syndrome. 2. Diabetic ketoacidosis. 3. Dehydration, severe. 4. Cerebral palsy. PLAN: We will give the patient another liter of fluid. I will replace his phosphorus. IV fluids wi ll be continued, but will give him a little bit more free water. We will transition him onto his sub cutaneous insulin. Pulmonary or Critical Care will continue to follow while the patient remains in t his location, but if he transitions to subcutaneous insulin smoothly, he can be considered for transi tion to the floor.
[2017-03-04] MEDS: Sodium Chloride 0.45% 1,000 ML IV SCH (11:46)
[2017-03-04] MEDS ORDERED: FLU VACC QS2017-18 36 mo. & older 0.5 ML SYRINGE IM ONE (21:00)
[2017-03-05] MEDS: Sodium Chloride 0.45% 1,000 ML IV SCH ×2 (01:06→13:39)
[2017-03-05 06:19] LABS: Anion Gap 8 mmol/L (10-20); BUN (Urea Nitrogen) 14 mg/dL (8.9-20.6); Calc. Creatinine Clearance 73 mL/min (70-130); Calcium 8.3 mg/dL (7.8-10.44); Carbon Dioxide 24 mmol/L (22-29); Chloride 109 mmol/L (98-107); Estimated GFR-MDRD Greater than 90
[2017-03-05 06:20] LABS: #Eosinphils 0.1 thou/uL (0.0-0.7); #Monocytes 0.9 thou/uL (0.11-0.59); #Neutrophils 10.9 thou/uL (1.40-6.50); %Basophils 0.3 % (0.0-1.0); %Eosinophils 0.5 % (0.0-10.0); %Lymphocytes 19.8 % (21.0-51.0); %Monocytes 5.9 % (0.0-10.0); Hematocrit 35.4 % (42.0-52.0); Mean Platelet Volume 7.7 fL (7.4-10.4); Red Blood Cell (RBC) Count 3.66 mill/uL (4.70-6.10); White Blood Cell (WBC) Count 14.9 thou/uL (4.8-10.8)
[2017-03-05] MEDS ORDERED: Potassium Chloride 20 MEQ TAB PO SCH (06:45)
--- NOTE | 2017-03-05 08:02 | PDOC.FM ---
- Subjective Subjective: ARMANDO overnight, VSS, no complaints this AM. States that he was having trouble with transportation getting his insulin but still states he was taking it as perscribed 4 units of levemir AM/HS and 7-8 units of humalog TIDAC. No new complaints this AM. Denies any hx of fever, chills, nausea, vomitting, diarrhea. Endorses rhinorrhea and mild cough. - Objective MAR Reviewed: Yes Vital Signs & Weight: Vital Signs (12 hours) Temp Pulse Resp BP Pulse Ox 03/05/17 07:49 98.3 F 74 16 91/55 L 97 03/05/17 01:13 98.1 F 68 20 111/72 99 03/04/17 20:00 98.3 F 78 20 103/67 99 Most Recent Monitor Data Heart Rate from ECG 101 NIBP 112/74 NIBP BP-Mean 89 Respiration from ECG 16 SpO2 100 I&O: 03/04/17 03/05/17 03/06/17 06:59 06:59 06:59 Intake Total 655 Output Total 250 Balance 405 Result Diagrams: 03/05/17 04:21 03/05/17 04:21 <Lazarus Catherine - Last Filed: 03/05/17 07:59> - Objective Vital Signs & Weight: Vital Signs (12 hours) Temp Pulse Resp BP Pulse Ox 03/05/17 07:49 98.3 F 74 16 91/55 L 97 03/05/17 01:13 98.1 F 68 20 111/72 99 Most Recent Monitor Data Heart Rate from ECG 101 NIBP 112/74 NIBP BP-Mean 89 Respiration from ECG 16 SpO2 100 I&O: 03/04/17 03/05/17 03/06/17 06:59 06:59 06:59 Intake Total 655 Output Total 250 Balance 405 Result Diagrams: 03/05/17 04:21 03/05/17 04:21 <Rinku Toney - Last Filed: 03/05/17 10:14> Phys Exam - Physical Examination Constitutional: NAD Respiratory: no wheezing, clear to auscultation bilateral Cardiovascular: RRR, no significant murmur Gastrointestinal: soft, non-tender Neurological: moves all 4 limbs Psychiatric: A&O x 3 Skin: cap refill <2 seconds <Lazarus Catherine - Last Filed: 03/05/17 07:59> Dx/Plan (1) DKA (diabetic ketoacidoses) Code(s): E13.10 - OTH DIABETES MELLITUS WITH KETOACIDOSIS WITHOUT COMA Status : Resolved QualifierTitle: Diabetes mellitus type: type 1 Plan: Resolved (2) Type 1 diabetes Status: Chronic QualifierTitle: Diabetes mellitus complication status: without complication Qualified Code(s): E10.9 - Type 1 diabetes mellitus without complications Plan: Cont. w/ 4 units of levemir Sugars 70-215 overnight w/ no SSI use Pt does not eat a diabetic diet at home States he check his BG twice a day Will plan [facility] in getting insulin to hopefully prevent future admissions Importance of taking insulin and following up in outpatient clinic stressed to patient who expressed understanding (3) JOSE MARIA (acute kidney injury) Code(s): N17.9 - ACUTE KIDNEY FAILURE, UNSPECIFIED Status: Resolved Plan: resolved (4) Non compliance w medication regimen Code(s): Z91.14 - PATIENT'S OTHER NONCOMPLIANCE WITH MEDICATION REGIMEN Status : Resolved Plan: See type I diabetes Transition to home delivery of medication to help prevent non-compliance Pt states he will follow-up in outpatient clinic s/p discharge <Lazarus Catherine K - Last Filed: 03/05/17 07:59> Attending Addendum - Attending Addendum I personally evaluated the patient and discussed the management with Dr. Catherine I agree with the History, Examination, Assessment and Plan documented above with any addition or exceptions noted below. Patient is ready to go home. We are working with him to get medications delivered to his house and get transportation to the clinic. <Rinku Toney E - Last Filed: 03/05/17 10:14>
[2017-03-05] MEDS: Heparin 5,000 UNITS/ML VIAL SC SCH (08:15)
[2017-03-05] MEDS: Insulin Detemir 100 UNITS/ML 4 UNITS in Pre-Filled Syringe 1 EACH SC SCH (09:04)
[2017-03-05 11:15] VITALS: BP 97/58; TEMP 98
--- NOTE | 2017-03-05 15:28 | DIS-2 ---
DATE OF ADMISSION: DATE OF DISCHARGE: 03/05/2017 CONSULTATIONS: Dr. Estrella. PROCEDURES: None. PRIMARY DIAGNOSES: 1. Anion gap metabolic acidosis secondary to diabetic ketoacidosis. 2. Type 1 diabetes mellitus. 3. Medication noncompliance. 4. Acute kidney injury. SECONDARY DIAGNOSES: 1. Hyperlipidemia. 2. Cerebral palsy. DISCHARGE MEDICATIONS: 1. Levemir 4 units subcu a.m./at bedtime. 2. Humalog 4 units subcu t.i.d. a.c. DISCONTINUED MEDICATIONS: None. HISTORY OF PRESENT ILLNESS: The patient is a 46-year-old male well known to this service who present ed to the ER for evaluation of vomiting over the previous 2 days. The patient reportedly in his norm al state of health, denied any recent illness, nausea, vomiting, fevers, chills prior to onset of sym ptoms. Patient states that he had been previously compliant with his insulin regimen and had just pi cked up a prescription which he continues to endorse on day of discharge. The patient's initial eval uation in the ER showing blood glucose of 752 with a beta hydroxybutyrate of 14.36 and a VBG with a p H 7.23, pCO2 of 22 and pCO2 47. Patient as well had leukocytosis of 34.3, which was felt to be secon jesse to stress response, this resolved and negative blood cultures minus likely contaminant with alph a hemolytic strep in 1 of 2 and negative urine. The patient was admitted to the [facility] and initiated o n DKA protocol with resolution of his DKA later on that day. The patient was given his usual 4 units of Levemir, consists with carbohydrate diet and the drip was turned off in approximately one hour af ter this. The patient's sugars remained within normal range and did not reenter DKA. The patient wa s subsequently transitioned to the medical where he continued his insulin regimen and blood glucose r anging from 70-215 on the morning without any sliding scale insulin use. Patient was not restarted b ack on his usual short-acting insulin secondary to history of prior episodes of hypoglycemia during h is previous hospitalizations for this. The patient's white blood cell count downturn from 34.3-14.9 after 1 dose of Levaquin given in the ER. However, he denied any symptoms and this was felt likely t o be largely secondary to hemoconcentration stress response from going into diabetic ketoacidosis. T he patient remained afebrile throughout his entire hospitalization without any symptoms of systemic i llness. After a long discussion with the patient, it was found that he had been having trouble with transportation to the pharmacy to get his medications and also likely had not been following up in in. Patient does have insurance with Medicaid and his insulin was switched over to a pharmacy [facility] could deliver this to him and he will get transport with the Medicaid bus to be able to the clinic for further titration of his insulin. The patient expressed understanding of the importance of follo wing up and continue all of his insulin to prevent further episodes of DKA prior to discharge home. DISPOSITION: Stable. DISCHARGE INSTRUCTIONS: 1. Location: Home. 2. Follow up with primary care provider in 7-10 days. 3. Activity: As tolerated.
--- NOTE | 2017-03-07 12:59 | EKG ---
Test Reason : Blood Pressure : / mmHG Vent. Rate : 133 BPM Atrial Rate : 133 BPM P-R Int : 114 ms QRS Dur : 058 ms QT Int : 288 ms P-R-T Axes : 073 044 068 degrees QTc Int : 428 ms Sinus tachycardia with occasional Premature ventricular complexes Otherwise normal ECG Confirmed by SARABJIT AUSTIN ([id number]), primer expeditor and drier CYNDI VASQUEZ ([id number]) on 03/07/2017 12:58:39 PM Referred By: Confirmed By:SARABJIT AUSTIN
== END 2017-03-05 15:25 | disposition home or self-care (01) | DRG 638 ==
LOC: ERS 23:26 → ERHOLD 03-04 01:24 → CCU 03-04 08:09 → T4-A 03-04 12:54
PROVIDERS: ADMIT Internal Medicine; ATTEND Internal Medicine
DX: E10.10 Type 1 diabetes mellitus with ketoacidosis without coma (principal); N17.9 Acute kidney failure, unspecified; R65.10 Systemic inflammatory response syndrome (SIRS) of non-infectious origin without acute organ dysfunction; E87.5 Hyperkalemia; E78.5 Hyperlipidemia, unspecified; E86.0 Dehydration; G80.9 Cerebral palsy, unspecified; D72.829 Elevated white blood cell count, unspecified; Z88.0 Allergy status to penicillin; Z91.19 Patient's noncompliance with other medical treatment and regimen
CPT/HCPCS: 36415; 36416; 71010; 80048; 80053; 80306; 81003; 82010; 82330; 82435; 82550; 82553; 82803; 83605; 83690; 83735; 83930; 84100; 84132; 84295; 84484; 85014; 85025; 87040; 87086; 87149; 90471; 90682; 93005; A4216; G0008; J1644; J1815; J1956; J7050; Q2036; S0028

== ENCOUNTER 2017-05-21 15:07 | Inpatient (IN) | payer MEDICARE ==
[2017-05-21 15:52] LABS: Bilirubin Negative (Negative); Blood, Urine Negative (Negative); Clarity CLEAR (Clear); Glucose, Urine (Dipstick) >=1000 mg/dL (Negative); Leukocyte Negative (Negative); Nitrite Negative (Negative); Protein, Urine (Dipstick) 30 mg/dL (Neg-Trace); Specific Gravity, Urine 1.037 (1.002-1.036); Urobilinogen 0.2 mg/dL (0.2-1.0); pH, Urine 5.5 (5.0-9.0)
[2017-05-21 15:55] LABS: Bacteria/HPF None Seen HPF (None Seen); Hyaline Casts/LPF 0-3 HYALINE CAST LPF (0-3 Hyaline); Pathc Cast-AUWi Flag 0.27 (0-2.49); RBC/HPF 0-3 HPF (0-3); Squamous Epithelial 0-3 HPF (0-3); WBC/HPF 0-3 HPF (0-3)
[2017-05-21 16:01] LABS: Hemoglobin 16.8 g/dL (14.0-18.0); Mean Corpuscular HGB CONC 32.3 g/dL (32.0-36.0); Mean Corpuscular Hemoglobin 31.6 pg (27.0-31.0); Mean Corpuscular Volume 97.8 fl (80.0-94.0); Mean Platelet Volume 8.4 fL (7.4-10.4); Platelet Count 335 thou/uL (130-400); Red Blood Cell (RBC) Count 5.33 mill/uL (4.70-6.10); White Blood Cell (WBC) Count 21.5 thou/uL (4.8-10.8)
[2017-05-21 16:14] LABS: Band 6 % (5-11); Lymphocytes 6 % (21-51); MDiff Complete? YES; Monocytes 2 % (0-10); Neutrophil 85 % (42-75); PLT Morphology Comment Appears Adequate; RBC Morphology Normal; Reactive Lymphocytes 1 % (0-10)
[2017-05-21] MEDS ORDERED: Ondansetron HCl/PF 4 MG/2 ML Vial ONE (16:21)
[2017-05-21 16:23] LABS: ALT (SGPT) 11 U/L (8-55); AST (SGOT) 10 U/L (5-34); Alkaline Phosphatase 146 U/L (40-150); BUN (Urea Nitrogen) 14 mg/dL (8.9-20.6); Bilirubin, Total 0.7 mg/dL (0.2-1.2); Calc. Creatinine Clearance 0 mL/min (70-130); Calcium 10.4 mg/dL (7.8-10.44); Chloride 98 mmol/L (98-107); Estimated GFR-MDRD 54; Globulin 3.4 g/dL (2.4-3.5); Glucose 346 mg/dL (70-105); Potassium 4.6 mmol/L (3.5-5.1); Protein, Total 8.4 g/dL (6.0-8.3); Sodium 132 mmol/L (136-145)
[2017-05-21 16:27] LABS: Carbon Dioxide Less than 8 mmol/L (22-29)
[2017-05-21 16:43] LABS: CKMB 1.1 ng/mL (0-6.6); Troponin I Less than 0.010 ng/mL (< 0.028)
[2017-05-21] MEDS ORDERED: Insulin Regular 100 units/100 ml in NS IVPB SCH (17:00)
[2017-05-21] MEDS ORDERED: Sodium Bicarb 50 MEQ/50 ML Abboject 8.4% SYRINGE ONE (17:09)
[2017-05-21] MEDS ORDERED: Insulin Regular 300 UNITS/3 ML VIAL ONE (17:11)
[2017-05-21 17:38] LABS: Actual Bicarbonate (HCO3v) 4 mEq/L (22-26); Analyzer IN Cardio ER; Base Excess -22.2 mEq/L (0 (+/- 2.5)); Hemoglobin (Hb) 4.4 g/dL (13.1-17.2); pH (venous) 7.23 (7.35-7.45)
[2017-05-21 17:39] LABS: Chloride (ABG LAB) 126 mmol/L (98-106); Potassium - ABG Lab 0.8 mmol/L (3.70-5.30)
--- NOTE | 2017-05-21 17:41 | RAD ---
ABDOMINAL SURVEY WITH UPRIGHT CHEST AND 2 VIEW ABDOMEN: Date: 05/21/17 HISTORY: Abdominal pain with vomiting. FINDINGS: Lungs appear clear with no infiltrate identified. Prominent stool seen throughout the colon. Small bowel gas pattern is unremarkable without evidence o f small bowel obstruction. No evidence of free air identified. Surgical clips overlie the lower abdom en. IMPRESSION: Prominent stool seen throughout the colon. Bowel gas pattern otherwise unremarkable. POS: [facility]
[2017-05-21] MEDS ORDERED: Pantoprazole 40 MG VIAL ONE (17:45)
[2017-05-21] MEDS ORDERED: Mag-Al 1200 mg/1200 mg/30 ML UDCUP ONE (17:45)
[2017-05-21] MEDS ORDERED: Lidocaine Viscous Sol 2% 15 ml UD Cup ONE (17:47)
--- NOTE | 2017-05-21 18:41 | PDOC.FPRHP ---
- History of Present Illness Chief Complaint: Nausea, vomiting History of Present Illness: Pt Seen 05/21 @ 1830 Pt is a 46 yo M w/ PMH of DMI and cerebral palsy that presents with cc of nausea and vomiting for the last 3 days with associated polyuria. Additionally, reports decreased PO intake 2/2 nausea and vomiting so he decided no to take his insulin for the last 2 days. On presentation to the ED the pt was found to have an elevated BG of 346, an anion gap met acidosis, elevated b- hydroxybutyrate and was subsequnelty given 1 amp of bicarb, 2LNS and started on an insulin drip @ 4mls/hr. He denies cp, cough, congestion, abdominal pain, diarrhea, constipation, fever, chills, dysuria. On review of records, the pt has a history of chronic medication non-compliance and is frequently re-hospitalized for DKA because of that. The pt states that he takes lantus 8 U daily and novolog 7 U w/ meals, but his previous discharge summary shows he was discharged on levemir 4UBID and humlog 4U tid. Additionally , pt states that he receives his medications from [facility], but on review of clinic charts the last time the pt was seen was approx 18 months ago. ED Course: 3LNS Novolin drip @ 4mls/hr Zofran 1 amp bicarb - Allergies/Adverse Reactions Allergies Allergy/AdvReac Type Severity Reaction Status Date / Time Penicillins Allergy Verified 03/04/17 07:34 - Home Medications Medication Instructions Recorded Confirmed Type HumaLOG [HumaLOG Vial] 4 units SC TID-WM #1 vial 03/05/17 Rx Insulin Detemir 100 UNITS/ML 4 units SC BID #1 vial 03/05/17 Rx [Levemir] - History PMHx: Cerebral palsy, DMI PSHx: Abscess drainage, Appendectomy FHx: NA Social: Denies tobacco, alcohol and drug use - Review of Systems General: reports: weight/appetite/sleep changes, fatigue. denies: fever/chills , night sweats Eyes: denies: eye pain, vision changes ENT: denies: nasal congestion, rhinorrhea Respiratory: reports: shortness of breath. denies: cough, congestion Cardiovascular: denies: chest pain, palpitation, edema Gastrointestinal: reports: nausea, vomiting. denies: diarrhea, constipation, abdominal pain Genitourinary: reports: polyuria. denies: dysuria Skin: denies: rashes, jaundice Musculoskeletal: denies: pain, tenderness, arthritis/arthralgias Neurological: reports: weakness. denies: syncope - Vital signs BP: 143/93 HR: 125 RR: 32 Tmax: 98.4 Pox: 100% on RA Wt: 45KG - Physical Exam Constitutional: awake, alert and oriented, other (mild-moderate distress) HEENT: normocephalic and atraumatic, PERRLA, EOMI, conjunctiva clear, no scleral icterus, grossly normal vision, TM's clear and intact, grossly normal hearing, other (poor dentition) Neck: supple, FROM, trachea midline, no LAD Heart: normal S1/S2, no murmurs/rubs/gallops, pulses present, no edema, other ( tachycardic, regular rhythm) Lungs: CTAB, no respiratory distress, good air movement, no rales/rhonchi, no wheezing, no retractions Abdomen: soft, non-tender, bowel sounds present, no masses/distention Musculoskeletal: normal structure, normal tone Neurological: no focal deficit Skin: capillary refill <2 seconds, no jaundice Heme/Lymphatic: no unusual bruising or bleeding, no LAD FMR H&P: Results - Labs Result Diagrams: 05/21/17 15:52 05/21/17 15:52 Lab results: WBC 21.5 thou/uL (4.8-10.8) H 05/21/17 15:52 Hgb 16.8 g/dL (14.0-18.0) 05/21/17 15:52 Hct 52.1 % (42.0-52.0) H 05/21/17 15:52 MCV 97.8 fl (80.0-94.0) H 05/21/17 15:52 Plt Count 335 thou/uL (130-400) 05/21/17 15:52 Band Neuts % (Manual) 6 % (5-11) 05/21/17 15:52 VBG pH 7.23 (7.35-7.45) L* 05/21/17 17:37 VBG pCO2 8.8 mmHg (41.0-51.0) L 05/21/17 17:37 VBG pO2 36.8 mmHg (35.0-45.0) 05/21/17 17:37 Sodium 132 mmol/L (136-145) L 05/21/17 15:52 Potassium 4.6 mmol/L (3.5-5.1) 05/21/17 15:52 Chloride 98 mmol/L (98-107) 05/21/17 15:52 Carbon Dioxide Less than 8 mmol/L (22-29) L* 05/21/17 15:52 BUN 14 mg/dL (8.9-20.6) 05/21/17 15:52 Creatinine 1.41 mg/dL (0.6-1.3) H 05/21/17 15:52 Glucose 346 mg/dL (70-105) H 05/21/17 15:52 Calcium 10.4 mg/dL (7.8-10.44) 05/21/17 15:52 Total Bilirubin 0.7 mg/dL (0.2-1.2) 05/21/17 15:52 AST 10 U/L (5-34) 05/21/17 15:52 ALT 11 U/L (8-55) 05/21/17 15:52 Alkaline Phosphatase 146 U/L (40-150) 05/21/17 15:52 CK-MB (CK-2) 1.1 ng/mL (0-6.6) 05/21/17 15:52 Serum Total Protein 8.4 g/dL (6.0-8.3) H 05/21/17 15:52 Albumin 5.0 g/dL (3.5-5.0) 05/21/17 15:52 Urine Ketones > or equal to 80 mg/dL (Negative) H 05/21/17 15:46 Urine Blood Negative (Negative) 05/21/17 15:46 Urine Nitrite Negative (Negative) 05/21/17 15:46 Ur Leukocyte Esterase Negative (Negative) 05/21/17 15:46 Urine RBC 0-3 HPF (0-3) 05/21/17 15:46 Urine WBC 0-3 HPF (0-3) 05/21/17 15:46 Ur Squamous Epith Cells 0-3 HPF (0-3) 05/21/17 15:46 Urine Bacteria None Seen HPF (None Seen) 05/21/17 15:46 Laboratory Tests 05/21/17 05/21/17 15:22 15:52 Troponin I Less than 0.010 B-Hydroxybutyrate 11.31 H - Radiology Interpretation Abdominal x-ray Status: report reviewed by me Additional comment: Normal bowel gas pattern; stool throughout colon; otherwise normal FMR H&P: A/P - Problem List (1) DKA (diabetic ketoacidoses) Current Visit: No Status: Acute Code(s): E13.10 - OTH DIABETES MELLITUS WITH KETOACIDOSIS WITHOUT COMA Qualifiers: Diabetes mellitus type: type 1 Diabetes mellitus complication detail: without coma Qualified Code(s): E10.10 - Type 1 diabetes mellitus with ketoacidosis without coma (2) Increased anion gap metabolic acidosis Current Visit: Yes Status: Acute Code(s): E87.2 - ACIDOSIS (3) Hyperglycemia due to type 1 diabetes mellitus Current Visit: Yes Status: Acute Code(s): E10.65 - TYPE 1 DIABETES MELLITUS WITH HYPERGLYCEMIA (4) Leukocytosis Current Visit: Yes Status: Acute Code(s): D72.829 - ELEVATED WHITE BLOOD CELL COUNT, UNSPECIFIED (5) Hyponatremia Current Visit: Yes Status: Acute Code(s): E87.1 - HYPO-OSMOLALITY AND HYPONATREMIA - Plan 1) DKA: - This is likely 2/2 medication non-compliance, no evidence of infection - Pt received 3LNS in ED in addition to 1 amp bicarb - Admit to IMCU on DKA protocol - Insulin drip @ 4mls/hr currently - Accuchecks q1hr, titrate insulin per protocol - IVF per protocol - BMP q4 hrs - Elyte replacement per protocol, last bmp K+ wnl; pseudohyponatremia 2) AG Met acidosis: - VBG pH7.23, ABG is pending, AG=26 - 2/2 DKA, B-hydroxybutyrate 11.3 - BMP checks q4 hrs - Continue insulin drip - DKA protocol, pt admitted to IMCU 3) Hyperglycemia: - see1 4) Leukocytosis: - Stress response - No evidence of infection - AM CBC 5) Hyponatremia: - pseudohyponatremia - 2/2 hyperglycemia - corrects to approx 136-137 - BMPs q4hr FMR H&P: Upper Level - Pertinent history Patient is a 46yo CM with PMHx of cerebral palsy and uncontrolled T1DM with most recent A1c of 11.7% on 01/24/17 who presents with nausea and vomiting for the past 2-3 days. He has a hx of medication non-compliance but reports today that he has been taking his insulin daily except for the last few days since he has not been eating because of his nausea and vomiting. Followed at [facility] however his last visit was on 11/2015 and denies going to any other clinic for his meds. - Pertinent findings Vitals WNL Gen: thin, NAD HEENT: MMM, poor dentition Heart: S1 S2, RRR Resp: CTAB Abdomen: soft nontender Musk: maew - Plan Date/Time: 05/21/17 001 IMariana, have evaluated this patient and agree with findings/plan as outlined by engineer internship resident. Pertinent changes/additions are listed here. 1. DKA: likely 2/2 insulin non-compliance. Patient with recurrent hospitalizations for DKA due to med non-compliance. Pt with b-hydroxy of 11.31 and AG of 26. Initial VBG incorrect as it was drawn at the site of bi-carb infusion. ABG pending. Has received a total of 3L bolus of NS and started on insulin drip. UA negative for infection. Admit to IMCU and cont DKA protocol. 2. AG metabolic acidosis: 2/2 #1. See above. 3. T1DM: uncontrolled with A1c of 11.7% (01/24/17). Obtain A1c. Cont DKA protocol and once AG closed and patient tolerating PO may switch to previous discharged insulin regimen on 02/2017 of levemir 4u BID and Humalog 4u TID. 4. JOSE MARIA: likely pre-renal. s/p 3L bolus of NS. Cont IVF and monitor. 5. Hyponatremia: likely 2/2 hyperglycemia. Corrected Na of 134.5. 6. Leukocytosis: likely 2/2 #1. Do not suspect infectious etiology. Monitor. 7. Diet: NPO 8. PPX: SCDs 9. Code Status: Full Attending Addendum - Attending Addendum Date/Time: 05/21/172117 I personally evaluated the patient and discussed the management with Drs. Stover and Saad. I agree with and repeated the History, Examination, Assessment and Plan documented above with any addition or exceptions noted below. See my event note. Send lipase.
[2017-05-21] MEDS ORDERED: Ondansetron HCl/PF 4 MG/2 ML Vial IVP PRN (19:26)
[2017-05-21] MEDS ORDERED: NS 0.9% w/ 20 MEQ KCL 1,000 ML IV PRN ×2 (19:26)
[2017-05-21] MEDS ORDERED: Dextrose 5 %-0.45 % NaCl 1,000 ML IV PRN (19:26)
[2017-05-21] MEDS ORDERED: CCU Electrolyte Replacement 1 EACH IVPB SCH (19:26)
[2017-05-21] MEDS ORDERED: Ondansetron ODT 4 MG TAB PO PRN (19:26)
[2017-05-21] MEDS ORDERED: Sodium Chloride 0.9% 1,000 ML IV PRN ×4 (19:26)
[2017-05-21] MEDS ORDERED: Dextrose 5% in Water 1,000 ML IV PRN (19:33)
[2017-05-21] MEDS ORDERED: Potassium Chloride 40 MEQ in Sodium Chloride 0.9% 250 ML 250 ML IVPB PRN (19:36)
[2017-05-21] MEDS ORDERED: Potassium Phosphate 15 MMOL in Sodium Chloride 0.9% 250 ML 250 ML IV PRN (19:36)
[2017-05-21] MEDS ORDERED: Potassium Chloride 40 MEQ in Premix Bag 1 BAG IVPB PRN (19:36)
[2017-05-21] MEDS ORDERED: Potassium Phosphate 9 MMOL in Sodium Chloride 0.9% 100 ML IVPB PRN (19:36)
[2017-05-21] MEDS ORDERED: Magnesium Oxide 400 MG TAB PO PRN ×2 (19:36)
[2017-05-21] MEDS ORDERED: Potassium Phosphate 12 MMOL in Sodium Chloride 0.9% 250 ML 250 ML IV PRN (19:36)
[2017-05-21] MEDS ORDERED: CCU ELECTROLYTE REPLACEMENT PROTOCOL FS PRN (19:36)
[2017-05-21] MEDS ORDERED: Magnesium 2 GM/NS 0.9% 100 ML 2 GM in Premix Bag 1 BAG IVPB PRN (19:36)
[2017-05-21] MEDS ORDERED: Potassium Chloride 20 MEQ TAB PO PRN (19:36)
[2017-05-21 19:51] LABS: Actual Bicarbonate (HCO3a) 5.6 mEq/L (22-26); Base Excess (BEa) -19.2 mEq/L (0 (+/-) 2.5); CO2 Tension 13.6 mmHg (35.0-45.0); O2 Tension (PaO2) 123.8 mmHg (80.0-100.0); pH, Arterial 7.23 (7.35-7.45)
[2017-05-21 19:52] LABS: Hematocrit-ABG 43.6 % (42.0-52.0); Hemoglobin (Hb) 13.5 g/dL (14.0-18.0)
[2017-05-21 19:53] LABS: Analyzer IN Cardio ER; Calcium, Ionized 1.2 mmol/L (1.12-1.30); Puncture Site LRA
[2017-05-21 20:03] LABS: Troponin I Less than 0.010 ng/mL (< 0.028)
[2017-05-21 20:29] LABS: Hemoglobin A1c 11.8 % (4.0-6.0)
--- NOTE | 2017-05-21 20:35 | PDOC.EVN ---
Event Note - Event Note Event Note: Attending note. Agree with H&P draft of residents. 2 day history of nausea/vomiting/abd pain with 3P's. Has not been taking insulin. No cp/sob/diarrhea/skin abscesses. He feels like this is his usual symptoms when he is out of insulin. Exam: vitals noted, no longer tachypneic. NAD, resting comfortably, Tachy, without murmur. CTAB s w/r/r. BS+, NTTP, lipid hypertrophy at site of insulin injection. Labs and imaging reviewed. DKA 2/2 DM1 with nonadherance with metabolic acidosis -low suspicion for ACS, PE, pancreatitis, other, but will closely monitor -labs q2, glucose q1 -MIVF -insulin gtt, transition to d5 when < 250 -replete K as indicated -PO when gap closed and transition to SQ insulin Hyponatremia -pseudo, observe Leukocytosis -currently no s/s of infection, monitor DVT/GI ppx
[2017-05-21] MEDS ORDERED: Famotidine/PF 20 mg/2ml Vial SLOW IVP SCH (21:00)
[2017-05-21] MEDS ORDERED: Insulin Detemir 100 UNITS/ML 4 UNITS in Pre-Filled Syringe 1 EACH SC SCH (21:00)
[2017-05-21] MEDS: D5 1/2 NS w/20 mEq KCL 1,000 ML IV PRN (21:21)
[2017-05-21 22:19] LABS: Troponin I Less than 0.010 ng/mL (< 0.028)
[2017-05-21 22:26] LABS: Anion Gap 16 mmol/L (10-20); BUN (Urea Nitrogen) 12 mg/dL (8.9-20.6); Calc. Creatinine Clearance 48 mL/min (70-130); Calcium 7.6 mg/dL (7.8-10.44); Carbon Dioxide 14 mmol/L (22-29); Chloride 113 mmol/L (98-107); Estimated GFR-MDRD Greater than 90; Glucose 56 mg/dL (70-105); Potassium 3.5 mmol/L (3.5-5.1); Sodium 139 mmol/L (136-145)
[2017-05-21] MEDS: Dextrose 50% Abboject 50 ML SYRINGE SLOW IVP PRN (22:35)
[2017-05-21 23:59] LABS: Anion Gap 20 mmol/L (10-20); BUN (Urea Nitrogen) 11 mg/dL (8.9-20.6); Calc. Creatinine Clearance 42 mL/min (70-130); Calcium 7.6 mg/dL (7.8-10.44); Chloride 109 mmol/L (98-107); Estimated GFR-MDRD 86; Glucose 357 mg/dL (70-105); Potassium 4.3 mmol/L (3.5-5.1); Sodium 134 mmol/L (136-145)
[2017-05-22 00:01] LABS: Carbon Dioxide 9 mmol/L (22-29)
[2017-05-22] MEDS: D5 1/2 NS w/20 mEq KCL 1,000 ML IV PRN ×2 (01:22→05:13)
[2017-05-22 01:58] LABS: Anion Gap 15 mmol/L (10-20); BUN (Urea Nitrogen) 10 mg/dL (8.9-20.6); Calc. Creatinine Clearance 47 mL/min (70-130); Calcium 7.5 mg/dL (7.8-10.44); Carbon Dioxide 11 mmol/L (22-29); Chloride 111 mmol/L (98-107); Estimated GFR-MDRD Greater than 90; Glucose 254 mg/dL (70-105); Potassium 3.7 mmol/L (3.5-5.1); Sodium 133 mmol/L (136-145)
[2017-05-22] MEDS ORDERED: Dextrose 50% Abboject 50 ML SYRINGE SLOW IVP SCH (04:15)
[2017-05-22] MEDS: Dextrose 50% Abboject 50 ML SYRINGE SLOW IVP PRN (04:21)
[2017-05-22 04:24] LABS: Anion Gap 11 mmol/L (10-20); BUN (Urea Nitrogen) 9 mg/dL (8.9-20.6); Calc. Creatinine Clearance 52 mL/min (70-130); Calcium 7.8 mg/dL (7.8-10.44); Carbon Dioxide 16 mmol/L (22-29); Chloride 112 mmol/L (98-107); Estimated GFR-MDRD Greater than 90; Glucose 71 mg/dL (70-105); Potassium 3.7 mmol/L (3.5-5.1); Sodium 135 mmol/L (136-145)
[2017-05-22 04:39] LABS: #Basophils 0.1 thou/uL (0.0-0.2); #Eosinphils 0.1 thou/uL (0.0-0.7); #Lymphocytes 2.2 thou/uL (1.20-3.40); #Monocytes 1.5 thou/uL (0.11-0.59); #Neutrophils 10.8 thou/uL (1.40-6.50); %Basophils 0.6 % (0.0-1.0); %Eosinophils 0.5 % (0.0-10.0); %Lymphocytes 15.2 % (21.0-51.0); %Monocytes 10.2 % (0.0-10.0); %Neutrophils 73.5 % (42.0-75.0); Hemoglobin 11.6 g/dL (14.0-18.0); Mean Corpuscular HGB CONC 33.4 g/dL (32.0-36.0); Mean Corpuscular Hemoglobin 31.8 pg (27.0-31.0); Mean Platelet Volume 8.1 fL (7.4-10.4); Platelet Count 263 thou/uL (130-400); RBC Distribution Width 11.6 % (11.5-14.5); Red Blood Cell (RBC) Count 3.67 mill/uL (4.70-6.10); White Blood Cell (WBC) Count 14.7 thou/uL (4.8-10.8)
[2017-05-22 06:10] LABS: Anion Gap 7 mmol/L (10-20); BUN (Urea Nitrogen) 7 mg/dL (8.9-20.6); Calc. Creatinine Clearance 52 mL/min (70-130); Calcium 7.8 mg/dL (7.8-10.44); Carbon Dioxide 18 mmol/L (22-29); Chloride 113 mmol/L (98-107); Estimated GFR-MDRD Greater than 90; Glucose 108 mg/dL (70-105); Potassium 3.5 mmol/L (3.5-5.1); Sodium 134 mmol/L (136-145)
--- NOTE | 2017-05-22 06:38 | PDOC.FM ---
- Subjective Subjective: Feeling ok this morning. Has had no episodes of vomiting overnight. Continues to endorse he was complaint on his insulin regimen outpatient. - Objective MAR Reviewed: Yes Vital Signs & Weight: Vital Signs (12 hours) Temp Pulse Resp Pulse Ox 05/22/17 04:07 98.2 F 86 17 97 05/22/17 00:08 99.2 F 93 22 H 98 05/21/17 20:00 98.6 F 81 16 100 05/21/17 19:27 98.6 F 81 16 I&O: 05/20/17 05/21/17 05/22/17 06:59 06:59 06:59 Intake Total 2969 Output Total 745 Balance 2224 Result Diagrams: 05/22/17 03:37 05/22/17 05:43 <Deedee Asher - Last Filed: 05/22/17 08:12> - Objective Vital Signs & Weight: Vital Signs (12 hours) Temp Pulse Resp BP Pulse Ox 05/22/17 07:37 98.2 F 86 17 99 05/22/17 07:00 98.3 F 86 20 81/49 L 99 05/22/17 04:07 98.2 F 86 17 97 05/22/17 00:08 99.2 F 93 22 H 98 Weight Admit Weight 30.391 kg Weight 30.391 kg I&O: 05/21/17 05/22/17 05/23/17 06:59 06:59 06:59 Intake Total 2969 Output Total 745 Balance 2224 Result Diagrams: 05/22/17 03:37 05/22/17 07:41 <Kamila Knight Kaur - Last Filed: 05/22/17 11:25> Phys Exam - Physical Examination Constitutional: NAD very thin and frail appearing HEENT: sclera anicteric dry MM Neck: supple Respiratory: no wheezing, no rhonchi Cardiovascular: RRR, no significant murmur Gastrointestinal: soft, non-tender, no distention, positive bowel sounds Musculoskeletal: no edema, pulses present Neurological: non-focal, moves all 4 limbs Psychiatric: normal affect, A&O x 3 Skin: cap refill <2 seconds <Deedee Asher - Last Filed: 05/22/17 08:12> Dx/Plan (1) Hyponatremia Code(s): E87.1 - HYPO-OSMOLALITY AND HYPONATREMIA Status: Acute (2) Increased anion gap metabolic acidosis Code(s): E87.2 - ACIDOSIS Status: Acute (3) DKA (diabetic ketoacidoses) Code(s): E13.10 - OTH DIABETES MELLITUS WITH KETOACIDOSIS WITHOUT COMA Status : Acute QualifierTitle: Diabetes mellitus type: type 1 Diabetes mellitus complication detail: without coma Qualified Code(s): E10.10 - Type 1 diabetes mellitus with ketoacidosis without coma (4) Cerebral palsy Code(s): G80.9 - CEREBRAL PALSY, UNSPECIFIED Status: Chronic (5) Type 1 diabetes Status: Chronic QualifierTitle: Diabetes mellitus complication status: without complication Qualified Code(s): E10.9 - Type 1 diabetes mellitus without complications - Plan Plan: 1. Diabetic Ketoacidosis - Likely 2/2 insulin non-compliance - B-hb 11.3 and initial AG 26, now 7 - UA negative for infection - Continue DKA protocol - Initial ABG inaccurate 2/2 draw site at bicarb infusion 2. Anion Gap Metabolic Acidosis, resolved - 2/2 #1 3. T1DM, uncontrolled - A1c 11.8 - Long history of medication non-compliance, has not been see in clinic in 18 months - Recent D/C regimen levemir 4u BID and humalog 4u TID - Reports taking lantus 8u qHS and novolog 6u TID 4. Acute Kidney Injury, resolved 5. Hyponatremia - Corrected, likely 2/2 hyperglycemia - Continue to monitor 6. Leukocytosis - UA negative - Do not suspect infectious etiology - Continue to monitor 7. Cerebral palsy PPX: Will switch to lovenox and d/c pepcid <Deedee Asher - Last Filed: 05/22/17 08:12> Attending Addendum - Attending Addendum Date/Time: 05/22/17 1123 I personally evaluated the patient and discussed the management with Dr. Asher. I agree with the History, Examination, Assessment and Plan documented above with any addition or exceptions noted below. DKA-sq insulin given, gtt stopped and ready to transfer to medical floor. <Kamila Knight - Last Filed: 05/22/17 11:25>
[2017-05-22] MEDS ORDERED: HumaLOG 300 UNITS/3 ML VIAL SC SCH (07:30)
[2017-05-22 08:12] LABS: Anion Gap 9 mmol/L (10-20); BUN (Urea Nitrogen) 7 mg/dL (8.9-20.6); Calc. Creatinine Clearance 56 mL/min (70-130); Calcium 7.8 mg/dL (7.8-10.44); Carbon Dioxide 17 mmol/L (22-29); Chloride 110 mmol/L (98-107); Estimated GFR-MDRD Greater than 90; Glucose 171 mg/dL (70-105); Potassium 3.8 mmol/L (3.5-5.1); Sodium 132 mmol/L (136-145)
[2017-05-22] MEDS: HumaLOG 300 UNITS/3 ML VIAL SC SCH ×3 (08:43→18:21)
[2017-05-22] MEDS: Insulin Detemir 100 UNITS/ML 4 UNITS in Pre-Filled Syringe 1 EACH SC SCH (08:43)
[2017-05-22] MEDS ORDERED: Insulin Detemir 100 UNITS/ML 4 UNITS in Pre-Filled Syringe 1 EACH SC SCH ×2 (09:00→21:00)
[2017-05-22] MEDS ORDERED: FLU VACC QS2017-18 36 mo. & older 0.5 ML SYRINGE IM ONE (09:00)
[2017-05-22 12:21] VITALS: BMI 16.7
--- NOTE | 2017-05-22 18:36 | CON ---
DATE OF CONSULTATION: 05/22/2017 SERVICE: Pulmonary Medicine. REASON FOR CONSULTATION: IMCU patient. HISTORY OF PRESENT ILLNESS: The patient is a 46-year-old white male with past medical history significant for diabetes. Occasionally, he stretched out his insulin. It is not clear what precipitated this event, but our suspicion is that it may have something to do with that. Other way, he had decreased p.o. and little nausea and vomiting over period of 2-3 days prior to admission. He presented to the emergency department and was discovered to have laboratory findings consistent with diabetic ketoacidosis. Overnight, he was given an insulin drip. His gap is closed and his appetite picked up. He tolerated p.o. He has successfully been converted off of that drip. He is waiting for a bed on the floor. Otherwise, there has been no interval change to his condition. He denies having any infectious symptoms currently. Specifically suggested he is having no sputum production, cough, nausea, vomiting, recent diarrhea, fevers , chills, redness, or hot, red or swollen joints. PAST MEDICAL HISTORY: 1. Type 1 diabetes mellitus. 2. Dyslipidemia. 3. Cerebral palsy. PAST SURGICAL HISTORY: None. SOCIAL HISTORY: Negative for alcohol, tobacco or illicit drug use. He has no exposure to chemicals, dust, asbestosis, or tuberculosis. He currently works at [employer]. FAMILY HISTORY: Noncontributory. ALLERGIES: PENICILLIN. MEDICATIONS: List of his inpatient medications were reviewed. No updates were made at this time. REVIEW OF SYSTEMS: General, head, ears, eyes, nose, throat, cardiovascular, respiratory, GI, , musculoskeletal, neurologic and skin is negative except as mentioned in the HPI. PHYSICAL EXAMINATION: VITAL SIGNS: Afebrile, pulse 92, blood pressure 103/63, respirations 18, saturation 99% on room air. GENERAL: The patient is awake and alert, in no apparent distress. LUNGS: Decent air entry with no prolonged expiratory phase or wheezing. HEART: Normal rate, regular. ABDOMEN: Soft, nontender, nondistended. Bowel sounds are positive. MUSCULOSKELETAL: No cyanosis or clubbing. There is no pitting in the bilateral lower extremities. NEUROLOGIC: Grossly nonfocal. LABORATORY DATA: WBC 14.7, hemoglobin 11.6 and at baseline. Platelets 263. Band count was low at 6% on presentation. Neutrophil count has dropped off into a normal range. A pH 7.23, pCO2 of 13, pO2 of 123 on presentation. Basic metabolic profile is otherwise unremarkable. Urinalysis is negative. Urine drug screen is negative. Beta hydroxybutyric acid was 11.31. The other is growing Strep alpha, not pneumonia. Influenza A and B are both unremarkable. Urine culture is negative. IMAGING: Acute abdominal series demonstrates prominent stool seen throughout the colon. Bowel gas pattern is otherwise unremarkable. ASSESSMENT: 1. Diabetic ketoacidosis, resolved. 2. Constipation. 3. Systemic inflammatory response syndrome. PLAN: The patient is stable for transition out of the [facility]. I will continue to follow so long as he remains in this location, but when he goes to the floor , he will have no further requirements for inpatient Pulmonary or Critical Care opinion and I will sign off. Please call with additional questions or concerns moving forward. 70 minutes have been devoted to this patient in various activities. I personally reviewed all imaging studies and laboratory data noted within this document. For greater than fifty percent of this time, I was interacting with the patient at the bedside or coordinating care with the care team. For the remainder of the time I was immediately available to the patient in the hospital unit. DARRON
[2017-05-22] MEDS: Enoxaparin Sodium 40 MG/0.4 ML SYRINGE SC SCH (21:01)
[2017-05-23] MEDS ORDERED: HumaLOG 300 UNITS/3 ML VIAL SC PRN ×2 (06:04→10:42)
[2017-05-23] MEDS ORDERED: Dextrose 50% Abboject 50 ML SYRINGE SLOW IVP PRN ×2 (06:04→10:42)
[2017-05-23] MEDS ORDERED: Dextrose 5% in Water 1,000 ML IV PRN ×2 (06:04→10:42)
--- NOTE | 2017-05-23 06:45 | PDOC.FM ---
- Subjective Subjective: Feeling well this morning and has no concerns or complaints. Is ready to eat breakfast. - Objective MAR Reviewed: Yes Vital Signs & Weight: Vital Signs (12 hours) Temp Pulse Resp BP Pulse Ox 05/22/17 20:00 98.8 F 102 H 16 105/66 100 05/22/17 19:00 98.4 F 96 16 100 Weight Admit Weight 30.391 kg Weight 44.225 kg I&O: 05/21/17 05/22/17 05/23/17 06:59 06:59 06:59 Intake Total 2969 Output Total 745 Balance 2224 Result Diagrams: 05/22/17 03:37 05/22/17 07:41 <Deedee Asher - Last Filed: 05/23/17 07:22> - Objective Vital Signs & Weight: Vital Signs (12 hours) Temp Pulse Resp BP BP Pulse Ox 05/23/17 11:30 98.6 F 116 H 16 106/66 05/23/17 10:57 98.4 F 111 H 18 109/68 98 05/23/17 08:00 98.4 F 111 H 16 99 05/23/17 07:00 98.4 F 111 H 16 101/68 100 Weight Admit Weight 30.391 kg Weight 44.225 kg I&O: 05/22/17 05/23/17 05/24/17 06:59 06:59 06:59 Intake Total 2969 Output Total 745 Balance 2224 Result Diagrams: 05/22/17 03:37 05/23/17 10:43 <Kamila Knight - Last Filed: 05/23/17 14:34> Phys Exam - Physical Examination Constitutional: NAD HEENT: moist MMs missing teeth Neck: supple Respiratory: no wheezing, clear to auscultation bilateral Cardiovascular: RRR, no significant murmur Gastrointestinal: soft, non-tender, no distention, positive bowel sounds Musculoskeletal: no edema, pulses present chronic disability related to CP Neurological: non-focal, moves all 4 limbs Psychiatric: normal affect, A&O x 3 Skin: normal turgor, cap refill <2 seconds <Deedee Asher - Last Filed: 05/23/17 07:22> Dx/Plan (1) Hyponatremia Code(s): E87.1 - HYPO-OSMOLALITY AND HYPONATREMIA Status: Acute (2) Increased anion gap metabolic acidosis Code(s): E87.2 - ACIDOSIS Status: Acute (3) DKA (diabetic ketoacidoses) Code(s): E13.10 - OTH DIABETES MELLITUS WITH KETOACIDOSIS WITHOUT COMA Status : Acute QualifierTitle: Diabetes mellitus type: type 1 Diabetes mellitus complication detail: without coma Qualified Code(s): E10.10 - Type 1 diabetes mellitus with ketoacidosis without coma (4) Cerebral palsy Code(s): G80.9 - CEREBRAL PALSY, UNSPECIFIED Status: Chronic (5) Type 1 diabetes Status: Chronic QualifierTitle: Diabetes mellitus complication status: without complication Qualified Code(s): E10.9 - Type 1 diabetes mellitus without complications - Plan Plan: 1. Diabetic Ketoacidosis - Likely 2/2 insulin non-compliance - B-hb 11.3 and initial AG 26, resolved - UA negative for infection - s/p DKA protocol 2. Anion Gap Metabolic Acidosis, resolved - 2/2 #1 3. T1DM, uncontrolled - A1c 11.8 - Long history of medication non-compliance, has not been see in clinic in 18 months - Recent D/C regimen levemir 4u BID and humalog 4u TID - Reports taking lantus 8u qHS and novolog 6u TID - Resume home regimen with mild SSI - Elevated BG this morning requiring 10u SSI - Will monitor throughout the day and assist with home dosing, stressed importance of accuchecks at home and compliance with insulin - Discussed importance of OP follow-up 4. Acute Kidney Injury, resolved 5. Hyponatremia - Corrected, likely 2/2 hyperglycemia - Continue to monitor 6. Leukocytosis - UA negative - Do not suspect infectious etiology - Continue to monitor 7. Cerebral palsy PPX: Lovenox <Deedee Asher - Last Filed: 05/23/17 07:22> Attending Addendum - Attending Addendum Date/Time: 05/23/17 1000 I personally evaluated the patient and discussed the management with Dr. Asher I agree with the History, Examination, Assessment and Plan documented above with any addition or exceptions noted below. DKA-resolved Uncontrolled T2DM- increase insulin and titrate to goal BS. Mild tachycardia- regular rate on exam. Trend. No sign of infection or recurrence of DKA. <Kamila Knight Kaur - Last Filed: 05/23/17 14:34>
[2017-05-23] MEDS: Insulin Detemir 100 UNITS/ML 4 UNITS in Pre-Filled Syringe 1 EACH SC SCH (09:32)
[2017-05-23] MEDS: HumaLOG 300 UNITS/3 ML VIAL SC SCH ×2 (09:34→17:13)
[2017-05-23 11:13] LABS: Anion Gap 15 mmol/L (10-20); BUN (Urea Nitrogen) 12 mg/dL (8.9-20.6); Calc. Creatinine Clearance 71 mL/min (70-130); Calcium 8.9 mg/dL (7.8-10.44); Carbon Dioxide 22 mmol/L (22-29); Chloride 103 mmol/L (98-107); Estimated GFR-MDRD Greater than 90; Glucose 357 mg/dL (70-105); Potassium 3.6 mmol/L (3.5-5.1); Sodium 136 mmol/L (136-145)
[2017-05-23] MEDS ORDERED: HumaLOG 300 UNITS/3 ML VIAL SC SCH ×3 (11:30→13:34)
[2017-05-23] MEDS ORDERED: Insulin Detemir 100 UNITS/ML 4 UNITS in Pre-Filled Syringe 1 EACH SC SCH (21:00)
[2017-05-23] MEDS: Insulin Detemir 100 UNITS/ML 5 UNITS in Pre-Filled Syringe 1 EACH SC SCH (21:16)
[2017-05-23] MEDS: Enoxaparin Sodium 40 MG/0.4 ML SYRINGE SC SCH (21:17)
--- NOTE | 2017-05-24 07:24 | PDOC.FM ---
- Subjective Subjective: Sleeping comfortably this morning. Denies any concerns overnight. He is feeling well this morning. - Objective MAR Reviewed: Yes Vital Signs & Weight: Vital Signs (12 hours) Temp Pulse Resp BP Pulse Ox 05/23/17 21:00 98.6 F 88 16 103/64 98 05/23/17 19:58 98.2 F 91 16 99 Weight Admit Weight 30.391 kg Weight 44.225 kg I&O: 05/23/17 05/24/17 05/25/17 06:59 06:59 06:59 Output Total 1200 Balance -1200 Result Diagrams: 05/22/17 03:37 05/23/17 10:43 Additional Labs: Laboratory Tests 05/23/17 05/23/17 05/24/17 16:23 20:46 04:43 POC Glucose 211 H 260 H 98 <Deedee Asher - Last Filed: 05/24/17 07:22> - Objective Vital Signs & Weight: Vital Signs (12 hours) Temp Pulse Resp BP Pulse Ox 05/24/17 11:00 97.8 F 99 16 109/71 97 05/24/17 08:00 97.8 F 83 16 102/72 98 Weight Admit Weight 30.391 kg Weight 44.225 kg I&O: 05/23/17 05/24/17 05/25/17 06:59 06:59 06:59 Output Total 1200 Balance -1200 Result Diagrams: 05/22/17 03:37 05/23/17 10:43 <Kamila Knight - Last Filed: 05/24/17 12:03> Phys Exam - Physical Examination Constitutional: NAD HEENT: moist MMs missing teeth Neck: supple Respiratory: no wheezing, clear to auscultation bilateral Cardiovascular: RRR, no significant murmur Gastrointestinal: soft, non-tender, no distention, positive bowel sounds Musculoskeletal: no edema, pulses present Neurological: non-focal, moves all 4 limbs Psychiatric: normal affect, A&O x 3 Skin: no rash <Deedee Asher - Last Filed: 05/24/17 07:22> Dx/Plan (1) Hyponatremia Code(s): E87.1 - HYPO-OSMOLALITY AND HYPONATREMIA Status: Acute (2) Increased anion gap metabolic acidosis Code(s): E87.2 - ACIDOSIS Status: Acute (3) DKA (diabetic ketoacidoses) Code(s): E13.10 - OTH DIABETES MELLITUS WITH KETOACIDOSIS WITHOUT COMA Status : Acute QualifierTitle: Diabetes mellitus type: type 1 Diabetes mellitus complication detail: without coma Qualified Code(s): E10.10 - Type 1 diabetes mellitus with ketoacidosis without coma (4) Cerebral palsy Code(s): G80.9 - CEREBRAL PALSY, UNSPECIFIED Status: Chronic (5) Type 1 diabetes Status: Chronic QualifierTitle: Diabetes mellitus complication status: without complication Qualified Code(s): E10.9 - Type 1 diabetes mellitus without complications - Plan Plan: 1. Diabetic Ketoacidosis - Likely 2/2 insulin non-compliance - B-hb 11.3 and initial AG 26, resolved - UA negative for infection - s/p DKA protocol 2. Anion Gap Metabolic Acidosis, resolved - 2/2 #1 3. T1DM, uncontrolled - A1c 11.8 - Long history of medication non-compliance, has not been see in clinic in 18 months - Recent D/C regimen levemir 4u BID and humalog 4u TID - Reports taking lantus 10u qHS and novolog 8u TID - On home regimen with mild SSI - Will monitor throughout the day and assist with home dosing, stressed importance of accuchecks at home and compliance with insulin - Discussed importance of OP follow-up 4. Acute Kidney Injury, resolved 5. Hyponatremia - Corrected, likely 2/2 hyperglycemia - Continue to monitor 6. Leukocytosis - UA negative - Do not suspect infectious etiology - Continue to monitor 7. Cerebral palsy PPX: Lovenox Dispo: Possible d/c later today pending accuchecks on home regimen <Deedee Asher - Last Filed: 05/24/17 07:22> Attending Addendum - Attending Addendum Date/Time: 05/24/17 1140 I personally evaluated the patient and discussed the management with Dr. Asher I agree with the History, Examination, Assessment and Plan documented above with any addition or exceptions noted below. DKA-resolved Uncontrolled T1DM- fasting accucheck this am at goal. Stable for discharge if qac lunch sugar ok. F/U scheduled with Dr. Catherine on 05/30/17 <Kamila Knight - Last Filed: 05/24/17 12:03>
[2017-05-24] MEDS: Insulin Detemir 100 UNITS/ML 5 UNITS in Pre-Filled Syringe 1 EACH SC SCH (07:58)
[2017-05-24] MEDS: HumaLOG 300 UNITS/3 ML VIAL SC SCH ×2 (09:03→12:17)
--- NOTE | 2017-05-24 12:41 | DIS-2 ---
DATE OF ADMISSION: 05/21/2017 DATE OF DISCHARGE: 05/24/2017 RESIDENT: Deedee Asher M.D. ADMITTING ATTENDING: Lazarus Mcneal M.D. DISCHARGE ATTENDING: Kamila Knight M.D. CONSULTS: Marquis Estrella M.D. with Pulmonology. PRIMARY DIAGNOSIS: Diabetic ketoacidosis. SECONDARY DIAGNOSES: 1. Type 1 diabetes mellitus. 2. Cerebral palsy. DISCHARGE MEDICATIONS: 1. Lantus 10 units at bedtime. 2. Humalog 8 units subcu t.i.d. with meals. DISCONTINUE MEDICATIONS: None. HISTORY OF PRESENT ILLNESS AND HOSPITAL COURSE: Mr. Martinez presented with chief complaint of nausea and vomiting for several days. He was found to be in diabetic ketoacidosis and admitted to the [facility] for fluids and DKA protocol. He made a cabral recovery and prior to discharge, has had well -controlled blood glucose values. He has been asymptomatic throughout his hospitalization and had no other concerning findings. It was strongly stressed to him the importance of close followup with his PCP and he has an appointment with Dr. Catherine next Monday. It was also strongly encouraged that he check and log his blood sugar 4 times daily ([facility]) until his insulin can be appropriately titrated. DISPOSITION: Stable. DISCHARGE INSTRUCTIONS: 1. Location: Home. 2. Diet: Consistent carbohydrate. 3. Activity: As tolerated. 4. Followup: With Dr. Lazarus Catherine within 1 week of discharge. [facility]
[2017-05-24 13:05] VITALS: BP 109/66; TEMP 98
--- NOTE | 2017-05-24 18:48 | EKG ---
Test Reason : Blood Pressure : / mmHG Vent. Rate : 090 BPM Atrial Rate : 090 BPM P-R Int : 128 ms QRS Dur : 080 ms QT Int : 370 ms P-R-T Axes : 067 040 053 degrees QTc Int : 452 ms Normal sinus rhythm Normal ECG When compared with ECG of 21-MAY-2017 16:26, (Unconfirmed) No significant change was found Confirmed by DR. Yael CORNEJO ([id number]) on 05/24/2017 6:48:18 PM Referred By: JUAN CARLOS Confirmed By:DR. Yael CORNEJO
--- NOTE | 2017-05-27 13:22 | EKG ---
Test Reason : Blood Pressure : / mmHG Vent. Rate : 102 BPM Atrial Rate : 102 BPM P-R Int : 114 ms QRS Dur : 064 ms QT Int : 346 ms P-R-T Axes : 077 047 063 degrees QTc Int : 450 ms Sinus tachycardia Otherwise normal ECG Confirmed by ROYA BURGESS ([id number]), [employer] ([id number]) on 05/27/2017 1:22:41 PM Referred By: Confirmed By:ROYA BURGESS
== END 2017-05-24 14:23 | disposition home or self-care (01) | DRG 638 ==
LOC: ERS 15:07 → IMCU/EMU 19:08 → T4-B 05-22 17:12
PROVIDERS: ADMIT Family Medicine; ATTEND Family Medicine
DX: E10.10 Type 1 diabetes mellitus with ketoacidosis without coma (principal); E87.1 Hypo-osmolality and hyponatremia; N17.9 Acute kidney failure, unspecified; E78.5 Hyperlipidemia, unspecified; Z79.4 Long term (current) use of insulin; G80.9 Cerebral palsy, unspecified; K59.00 Constipation, unspecified; T38.3X6A Underdosing of insulin and oral hypoglycemic [antidiabetic] drugs, initial encounter; Z91.128 Patient's intentional underdosing of medication regimen for other reason
CPT/HCPCS: 36415; 36416; 74022; 80048; 80053; 81003; 81015; 82010; 82553; 82805; 83036; 83690; 84484; 85025; 93005; 93010; 96361; 96365; 96375; 96376; A4216; C9113; G8978-GP-CL; G8979-GP-CJ; J1650; J1815; J2405; J7050